=== PATIENT | male | born 1940 | race Caucasian/White ===

== ENCOUNTER 2018-05-21 15:53 | Inpatient (IN) ==
[2018-05-21 16:24] LABS: Basophils % 0.7 % (0.0-0.8); Eosinophils # 0.3 10*3/uL (0.0-0.87); Eosinophils % 4.3 % (0.00-10.9); Hematocrit 41.3 VOL% (42.0-52.0); Hemoglobin 14.1 GM/DL (14.0-18.0); Immature Granulocytes % 0.5 %; Immature Granulocytes Absolute 0.03 #; Mean Corpuscular HGB Conc 34.1 GM/DL (32-36); Mean Corpuscular Hemoglobin 31 PG (27-34); Mean Corpuscular Volume 91.6 FL (87-102); Mean Platelet Volume 10.3 FL (9.6-12.0); Monocytes # 0.6 10*3/uL (0.11-0.8); Neutrophils # 2.9 10*3/uL (1.4-7.4); Neutrophils % 49.5 % (38.7-73.9); Platelet Count 190 T/CUMM (130-400); Red Blood Count 4.51 MC/CUMM (3.8-5.5); Red Cell Distribution Width 12.6 % (9.3-17.3); White Blood Count 5.8 T/CUMM (4-12)
[2018-05-21 16:34] LABS: PT Patient Result 10.8 SECS; Partial Thromboplastin Time 27.4 SECS (0-40)
[2018-05-21] MEDS ORDERED: SODIUM CHLORIDE 0.9% 500 ML IV STA (16:42)
[2018-05-21] MEDS ORDERED: ONDANSETRON 4 MG/2 ML VIAL IV STA (16:42)
[2018-05-21 17:04] LABS: Albumin 3.8 G/DL (3.4-5.0); Bilirubin,Total 0.4 MG/DL (0.2-1.0); Calcium 9.3 MG/DL (8.5-10.1); Osmolality,Calculated 285.7 MOS/KG (273-304); Potassium 4.4 MMOL/L (3.5-5.1); Total Protein 7.9 G/DL (6.4-8.3)
[2018-05-21 17:39] LABS: Apearance,Urine CLEAR (Clear); Bilirubin,Urine Negative (Negative); Blood, Urine Negative (Negative); Glucose,Urine (UA) 150 mg/dL (Negative); Ketones,Urine Negative (Negative); Mucus,Urine Occasional /LPF (Occasional); Nitrite,Urine Negative (Negative); Protein,Urine 100 MG/DL; RBC,Urine <1 /HPF (0-4); Urine Color Yellow (Yellow); Urine Specific Gravity 1.018 (1.001-1.035); Urine Urobilinogen < 2.0 EU/DL (0.2-1.0); WBC,Urine <1 /HPF (0-6)
[2018-05-21 18:05] LABS: Barbiturates Screen,Urine Negative (Negative); Benzodiazepines Screen,Urine Negative (Negative); Cannabinoid Screen,Urine Negative (Negative); Opiate Screen,Urine Negative (Negative); Phencyclidine Screen,Urine Negative (Negative)
[2018-05-21] MEDS ORDERED: ACETAMINOPHEN 325 MG TABLET PO PRN (18:34)
[2018-05-21] MEDS ORDERED: ONDANSETRON 4 MG/2 ML VIAL IV PRN (18:34)
[2018-05-21] MEDS ORDERED: DOCUSATE SODIUM 100 MG CAPSULE PO PRN (18:34)
[2018-05-21] MEDS ORDERED: MORPHINE 4 MG/1 ML VIAL IV PRN (18:34)
[2018-05-21] MEDS ORDERED: DEXTROSE 50% 25 GM/50 ML VIAL IV PRN ×2 (18:34→18:43)
[2018-05-21] MEDS ORDERED: GLUCAGON 1 MG VIAL IM PRN ×2 (18:34→18:43)
[2018-05-21] MEDS ORDERED: diphenhydrAMINE CAP 25 MG CAPSULE PO PRN (18:34)
[2018-05-21] MEDS: INSULIN LISPRO 100 UNIT/ML SUBCUT SCH (21:00)
[2018-05-21] MEDS ORDERED: ATENOLOL 25 MG TABLET PO SCH (21:00)
[2018-05-21] MEDS: SODIUM CHLORIDE 0.9% 1,000 ML IV SCH (21:01)
[2018-05-21] MEDS: ENOXAPARIN 40 MG/0.4 ML SYRINGE SUBCUT SCH (21:56)
[2018-05-22 05:12] LABS: Basophils % 0.4 % (0.0-0.8); Eosinophils # 0.3 10*3/uL (0.0-0.87); Eosinophils % 5.1 % (0.00-10.9); Hematocrit 36.1 VOL% (42.0-52.0); Hemoglobin 12.4 GM/DL (14.0-18.0); Immature Granulocytes % 0.4 %; Immature Granulocytes Absolute 0.02 #; Lymphocytes # 1.8 10*3/uL (1.4-4.0); Mean Corpuscular HGB Conc 34.3 GM/DL (32-36); Mean Corpuscular Hemoglobin 32 PG (27-34); Mean Corpuscular Volume 91.9 FL (87-102); Mean Platelet Volume 10.7 FL (9.6-12.0); Monocytes # 0.7 10*3/uL (0.11-0.8); Monocytes % 12.9 % (1.7-12.7); Neutrophils # 2.4 10*3/uL (1.4-7.4); Neutrophils % 46.2 % (38.7-73.9); Platelet Count 182 T/CUMM (130-400); Red Blood Count 3.93 MC/CUMM (3.8-5.5); Red Cell Distribution Width 12.5 % (9.3-17.3); White Blood Count 5.1 T/CUMM (4-12)
[2018-05-22 05:48] LABS: Calcium 8.3 MG/DL (8.5-10.1); Potassium 4.2 MMOL/L (3.5-5.1); Risk Ratio 8.15; VLDL CHOLESTEROL 98.8 MG/DL
[2018-05-22] MEDS: LOSARTAN 50 MG TABLET PO SCH (08:52)
[2018-05-22] MEDS: PANTOPRAZOLE 40 MG TABLET PO SCH (08:52)
[2018-05-22] MEDS: GLIMEPIRIDE 2 MG TABLET PO SCH (08:52)
[2018-05-22] MEDS: OMEGA 3 ACID ETHYL ESTERS 1 GM CAPSULE PO SCH (08:53)
[2018-05-22] MEDS ORDERED: ATORVASTATIN 40 MG TABLET PO SCH (09:00)
[2018-05-22] MEDS ORDERED: amLODIPine 5 MG TABLET PO SCH (09:00)
[2018-05-22] MEDS ORDERED: PIOGLITAZONE 15 MG TABLET PO SCH (09:00)
[2018-05-22] MEDS ORDERED: hydrALAZINE 20 MG/1 ML VIAL IV PRN (11:01)
[2018-05-22] MEDS: INSULIN LISPRO 100 UNIT/ML SUBCUT SCH ×2 (12:37→17:29)
[2018-05-22] MEDS: NIACIN ER 500 MG TABLET PO SCH (12:38)
[2018-05-22] MEDS: SODIUM CHLORIDE 0.9% 1,000 ML IV SCH ×2 (12:39→21:53)
[2018-05-22] MEDS ORDERED: ROSUVASTATIN 20 MG TABLET PO SCH (21:00)
[2018-05-22] MEDS: ENOXAPARIN 40 MG/0.4 ML SYRINGE SUBCUT SCH (21:32)
[2018-05-23] MEDS ORDERED: ATENOLOL 25 MG TABLET PO SCH (08:09)
[2018-05-23] MEDS: OMEGA 3 ACID ETHYL ESTERS 1 GM CAPSULE PO SCH (09:13)
[2018-05-23] MEDS: GLIMEPIRIDE 2 MG TABLET PO SCH (09:13)
[2018-05-23] MEDS: PANTOPRAZOLE 40 MG TABLET PO SCH (09:13)
[2018-05-23] MEDS: INSULIN LISPRO 100 UNIT/ML SUBCUT SCH ×2 (09:15→16:55)
[2018-05-23] MEDS: LOSARTAN 50 MG TABLET PO SCH (09:30)
[2018-05-23] MEDS: NIACIN ER 500 MG TABLET PO SCH (09:31)
[2018-05-23] MEDS: metFORMIN 500 MG TABLET PO SCH (09:31)
[2018-05-23] MEDS: ATENOLOL 25 MG TABLET PO SCH (14:34)
[2018-05-23] MEDS: ENOXAPARIN 40 MG/0.4 ML SYRINGE SUBCUT SCH (21:02)
[2018-05-24] MEDS: INSULIN LISPRO 100 UNIT/ML SUBCUT SCH (09:40)
[2018-05-24] MEDS: PANTOPRAZOLE 40 MG TABLET PO SCH (09:41)
[2018-05-24] MEDS: NIACIN ER 500 MG TABLET PO SCH (09:41)
[2018-05-24] MEDS: OMEGA 3 ACID ETHYL ESTERS 1 GM CAPSULE PO SCH (09:41)
[2018-05-24] MEDS: metFORMIN 500 MG TABLET PO SCH (09:41)
[2018-05-24] MEDS: GLIMEPIRIDE 2 MG TABLET PO SCH (09:41)
[2018-05-24] MEDS: ATENOLOL 25 MG TABLET PO SCH (09:42)
[2018-05-24 11:41] VITALS: BP 130/78
[2018-05-24] MEDS ORDERED: DOXAZOSIN 1 MG TABLET PO SCH (12:30)
== END 2018-05-24 12:10 | disposition home or self-care (01) | DRG 312 ==
LOC: N.ED 15:53 → N.EDINP 15:53 → N.TELES 19:17
PROVIDERS: ADMIT Internal Medicine Pulmonary Disease; ATTEND Internal Medicine Pulmonary Disease

== ENCOUNTER 2021-05-25 15:57 | Inpatient (IN) ==
[2021-05-25] MEDS ORDERED: ONDANSETRON 4 MG/2 ML VIAL IV STA (16:26)
[2021-05-25] MEDS ORDERED: MORPHINE 2 MG/1 ML SYRINGE IV STA (16:26)
[2021-05-25] MEDS ORDERED: ASPIRIN 325 MG TABLET PO STA (16:26)
[2021-05-25 16:37] LABS: Basophils % 0.3 % (0.0-0.8); Eosinophils # 0.1 10*3/uL (0.0-0.87); Eosinophils % 1.7 % (0.00-10.9); Hematocrit 38.4 VOL% (42.0-52.0); Hemoglobin 12.8 GM/DL (14.0-18.0); Immature Granulocytes % 0.3 %; Immature Granulocytes Absolute 0.02 #; Lymphocytes # 1.9 10*3/uL (1.4-4.0); Lymphocytes % 26.2 % (21.2-54.2); Mean Corpuscular HGB Conc 33.3 GM/DL (32-36); Mean Corpuscular Volume 92.3 FL (87-102); Mean Platelet Volume 10.4 FL (9.6-12.0); Monocytes % 9.7 % (1.7-12.7); Neutrophils % 61.8 % (38.7-73.9); Platelet Count 182 T/CUMM (130-400); Red Blood Count 4.16 MC/CUMM (3.8-5.5); Red Cell Distribution Width 12.6 % (9.3-17.3); White Blood Count 7.1 T/CUMM (4-12)
[2021-05-25 16:44] LABS: Calcium 9.8 MG/DL (8.5-10.1); Osmolality,Calculated 280.8 MOS/KG (273-304); Potassium 4.5 MMOL/L (3.5-5.1)
[2021-05-25] MEDS ORDERED: HEPARIN 5,000 UNIT/1 ML VIAL IV STA ×2 (17:17→17:19)
[2021-05-25] MEDS ORDERED: TICAGRELOR 90 MG TABLET PO STA (17:17)
[2021-05-25] MEDS ORDERED: HEPARIN/NACL 0.9% 2 UNITS/ML 2,000 UNIT/1,000 ML BAG IV ONE (17:25)
[2021-05-25] MEDS ORDERED: DIAZEPAM 5 MG TABLET PO ONE (17:25)
[2021-05-25] MEDS ORDERED: diphenhydrAMINE CAP 50 MG CAPSULE PO ONE (17:25)
[2021-05-25] MEDS ORDERED: LIDOCAINE 1% 20 ML VIAL ONE (17:25)
[2021-05-25] MEDS ORDERED: GLUCAGON 1 MG VIAL IM PRN (17:27)
[2021-05-25] MEDS ORDERED: DEXTROSE 50% 25 GM/50 ML VIAL IV PRN (17:27)
[2021-05-25] MEDS ORDERED: fentaNYL 100 MCG/2 ML VIAL ONE (17:34)
[2021-05-25] MEDS ORDERED: MIDAZOLAM 2 MG/2 ML VIAL ONE ×2 (17:34→18:41)
[2021-05-25] MEDS ORDERED: TIROFIBAN 5,000 MCG/100 ML PREMIX IV ONE (17:54)
[2021-05-25] MEDS ORDERED: HEPARIN/NACL 0.9% 2 UNITS/ML 1,000 UNIT/500 ML BAG IV ONE (18:17)
[2021-05-25] MEDS ORDERED: diphenhydrAMINE CAP 25 MG CAPSULE PO ONE (18:30)
[2021-05-25] MEDS ORDERED: TICAGRELOR 90 MG TABLET ONE (18:44)
[2021-05-25] MEDS ORDERED: hydrALAZINE 20 MG/1 ML VIAL IV PRN (18:55)
[2021-05-25] MEDS: SODIUM CHLORIDE 0.9% 1,000 ML IV SCH (20:03)
[2021-05-25] MEDS: atenoloL 25 MG TABLET PO SCH (20:21)
[2021-05-25] MEDS: TICAGRELOR 90 MG TABLET PO SCH (20:21)
[2021-05-25] MEDS ORDERED: FUROSEMIDE 40 MG/4 ML VIAL IV ONE (20:51)
[2021-05-25] MEDS ORDERED: MORPHINE 2 MG/1 ML SYRINGE IV SCH (21:00)
[2021-05-25] MEDS: INSULIN REGULAR 100 UNIT/ML SUBCUT SCH (21:17)
[2021-05-25 21:23] LABS: ABG Base Excess -5.7 MMOL/L (-2.5-2.5); ABG HCO3 19.7 MMOL/L (20-26); ABG Oxygen Saturation 94.2 % (95-100); ABG PH 7.355 (7.35-7.45); ABG PO2 76.2 MM HG (80-95); ABG TCO2 16.7 MMOL/L (23-27)
[2021-05-25 21:44] LABS: Basophils % 0.2 % (0.0-0.8); Eosinophils % 0.1 % (0.00-10.9); Hematocrit 39.9 VOL% (42.0-52.0); Hemoglobin 12.9 GM/DL (14.0-18.0); Immature Granulocytes % 0.5 %; Immature Granulocytes Absolute 0.08 #; Lymphocytes # 1.5 10*3/uL (1.4-4.0); Lymphocytes % 10.1 % (21.2-54.2); Mean Corpuscular HGB Conc 32.3 GM/DL (32-36); Mean Corpuscular Volume 93.2 FL (87-102); Mean Platelet Volume 10.3 FL (9.6-12.0); Monocytes % 7.6 % (1.7-12.7); Neutrophils % 81.5 % (38.7-73.9); Platelet Count 202 T/CUMM (130-400); Red Blood Count 4.28 MC/CUMM (3.8-5.5); Red Cell Distribution Width 12.7 % (9.3-17.3); White Blood Count 14.6 T/CUMM (4-12)
[2021-05-25] MEDS: ALBUTEROL/IPRATROPIUM 3 ML NEB RESP TX SCH ×2 (21:56→23:05)
[2021-05-25] MEDS ORDERED: NITROGLYCERIN DRIP 50 MG/250 ML BOTTLE IV PRN (21:58)
[2021-05-25 22:04] LABS: INR 1.1; PT Patient Result 11.8 SECS (10.5-12.0); Partial Thromboplastin Time 31.6 SECS (23.9-33.8)
[2021-05-25] MEDS: methylPREDNISolone SOD SUC 125 MG/2 ML VIAL IV SCH (22:25)
[2021-05-25] MEDS: ONDANSETRON 4 MG/2 ML VIAL IV PRN (22:25)
[2021-05-25 22:51] LABS: Bilirubin,Urine Negative (Negative); Blood, Urine Negative (Negative); Glucose,Urine (UA) Negative (Negative); Ketones,Urine 20 mg/dL (Negative); Mucus,Urine Occasional /LPF (Occasional); Nitrite,Urine Negative (Negative); Protein,Urine 100 MG/DL; RBC,Urine 1 /HPF (0-4); Urine Appearance CLEAR (Clear); Urine Color Yellow (Yellow); Urine Specific Gravity > 1.035 (1.001-1.035)
[2021-05-26] MEDS: MORPHINE 2 MG/1 ML SYRINGE IV PRN ×2 (00:48→19:05)
[2021-05-26] MEDS: SODIUM CHLORIDE 0.9% 1,000 ML IV SCH (01:51)
[2021-05-26 02:00] LABS: Basophils % 0.2 % (0.0-0.8); Hematocrit 38.5 VOL% (42.0-52.0); Hemoglobin 12.9 GM/DL (14.0-18.0); Immature Granulocytes % 0.7 %; Immature Granulocytes Absolute 0.09 #; Lymphocytes # 0.4 10*3/uL (1.4-4.0); Lymphocytes % 3.1 % (21.2-54.2); Mean Corpuscular HGB Conc 33.5 GM/DL (32-36); Mean Corpuscular Volume 92.1 FL (87-102); Mean Platelet Volume 10.3 FL (9.6-12.0); Monocytes % 3.2 % (1.7-12.7); NRBC # 0.02 10*3/uL; Neutrophils % 92.8 % (38.7-73.9); Platelet Count 186 T/CUMM (130-400); Red Blood Count 4.18 MC/CUMM (3.8-5.5); Red Cell Distribution Width 12.6 % (9.3-17.3); White Blood Count 13.3 T/CUMM (4-12)
[2021-05-26] MEDS ORDERED: FUROSEMIDE 40 MG/4 ML VIAL IV ONE (02:06)
[2021-05-26 02:13] LABS: Calcium 9.4 MG/DL (8.5-10.1); Osmolality,Calculated 281.1 MOS/KG (273-304); Potassium 4.6 MMOL/L (3.5-5.1)
[2021-05-26] MEDS: ALBUTEROL/IPRATROPIUM 3 ML NEB RESP TX SCH ×5 (04:00→21:04)
[2021-05-26 04:25] LABS: Hypochromasia 1+; Lymphocytes 3 % (20-55); Microcytosis 1+; Segmented Neutrophils 96 % (50-85); Tear Drop Cells Slight; Total Cells Counted 100
[2021-05-26 04:26] LABS: Platelet Estimate Adequate
[2021-05-26] MEDS: INSULIN REGULAR 100 UNIT/ML SUBCUT SCH ×4 (08:21→20:24)
[2021-05-26] MEDS: ASPIRIN EC 81 MG TABLET PO SCH (08:21)
[2021-05-26] MEDS: PANTOPRAZOLE 40 MG TABLET PO SCH (08:23)
[2021-05-26] MEDS: TICAGRELOR 90 MG TABLET PO SCH ×2 (08:23→20:23)
[2021-05-26] MEDS: atenoloL 25 MG TABLET PO SCH ×2 (08:43→20:23)
[2021-05-26] MEDS ORDERED: GLIMEPIRIDE 4 MG TABLET PO SCH (09:00)
[2021-05-26] MEDS: methylPREDNISolone SOD SUC 125 MG/2 ML VIAL IV SCH ×2 (09:37→21:30)
[2021-05-26] MEDS: FUROSEMIDE 40 MG/4 ML VIAL IV SCH ×2 (10:42→16:07)
[2021-05-26] MEDS: ONDANSETRON 4 MG/2 ML VIAL IV PRN (19:04)
[2021-05-26] MEDS: ZALEPLON 5 MG CAPSULE PO PRN (20:24)
[2021-05-27] MEDS: LEVALBUTEROL 0.31 MG/3 ML NEB RESP TX SCH ×3 (01:04→07:40)
[2021-05-27] MEDS: ONDANSETRON 4 MG/2 ML VIAL IV PRN (04:10)
[2021-05-27] MEDS: SODIUM CHLORIDE 0.9% 1,000 ML IV SCH (04:25)
[2021-05-27] MEDS: MORPHINE 2 MG/1 ML SYRINGE IV PRN (04:25)
[2021-05-27] MEDS: ALBUTEROL/IPRATROPIUM 3 ML NEB RESP TX SCH ×3 (05:11→07:39)
[2021-05-27] MEDS: ALUMINUM/MAGNES/SIMETH MAX STR 30 ML UDCUP PO PRN ×2 (06:00→08:06)
[2021-05-27] MEDS: INSULIN REGULAR 100 UNIT/ML SUBCUT SCH ×4 (08:06→20:37)
[2021-05-27] MEDS: FUROSEMIDE 40 MG/4 ML VIAL IV SCH (08:07)
[2021-05-27] MEDS: TICAGRELOR 90 MG TABLET PO SCH ×2 (08:08→20:35)
[2021-05-27] MEDS: ISOSORBIDE MONONITRATE 30 MG TABLET PO SCH (08:08)
[2021-05-27] MEDS: ASPIRIN EC 81 MG TABLET PO SCH (08:08)
[2021-05-27 08:09] LABS: Calcium 9.9 MG/DL (8.5-10.1); Potassium 4.7 MMOL/L (3.5-5.1)
[2021-05-27] MEDS: PANTOPRAZOLE 40 MG TABLET PO SCH (08:09)
[2021-05-27] MEDS: RANOLAZINE 500 MG TABLET PO SCH ×2 (08:14→20:34)
[2021-05-27] MEDS: atenoloL 25 MG TABLET PO SCH ×2 (08:14→20:34)
[2021-05-27] MEDS ORDERED: SPIRONOLACTONE 25 MG TABLET PO SCH (09:00)
[2021-05-27] MEDS ORDERED: ALUM/MAG/SIMETH/LIDO VISC 1:1 30 ML BOTTLE PO ONE (09:13)
[2021-05-27] MEDS: cefTRIAXone 1,000 MG in SODIUM CHLORIDE 0.9% 100 ML IV SCH (11:03)
[2021-05-27] MEDS: ACETAMINOPHEN 325 MG TABLET PO PRN ×2 (11:08→18:38)
[2021-05-27] MEDS ORDERED: diphenhydrAMINE CAP 25 MG CAPSULE PO PRN (16:09)
[2021-05-27] MEDS: DOCUSATE SODIUM 100 MG CAPSULE PO SCH (20:35)
[2021-05-27] MEDS: ZALEPLON 5 MG CAPSULE PO PRN (20:37)
[2021-05-28] MEDS: LEVALBUTEROL 0.31 MG/3 ML NEB RESP TX PRN ×3 (00:44→15:05)
[2021-05-28 07:09] LABS: Basophils % 0.1 % (0.0-0.8); Hematocrit 35.9 VOL% (42.0-52.0); Hemoglobin 11.8 GM/DL (14.0-18.0); Immature Granulocytes % 0.8 %; Immature Granulocytes Absolute 0.16 #; Lymphocytes % 4.6 % (21.2-54.2); Mean Corpuscular HGB Conc 32.9 GM/DL (32-36); Mean Platelet Volume 10.5 FL (9.6-12.0); Monocytes % 9.3 % (1.7-12.7); Neutrophils % 85.2 % (38.7-73.9); Platelet Count 218 T/CUMM (130-400); Red Blood Count 3.86 MC/CUMM (3.8-5.5); Red Cell Distribution Width 13.2 % (9.3-17.3); White Blood Count 20.6 T/CUMM (4-12)
[2021-05-28 07:30] LABS: Band Neutrophils 1 % (0-10); Lymphocytes 9 % (20-55); Platelet Estimate Normal; Segmented Neutrophils 84 % (50-85); Total Cells Counted 100
[2021-05-28] MEDS: SODIUM CHLORIDE 0.9% 1,000 ML IV SCH (07:48)
[2021-05-28] MEDS: INSULIN REGULAR 100 UNIT/ML SUBCUT SCH ×4 (07:48→20:33)
[2021-05-28 07:55] LABS: Calcium 9.8 MG/DL (8.5-10.1); Osmolality,Calculated 295.7 MOS/KG (273-304); Potassium 4.6 MMOL/L (3.5-5.1)
[2021-05-28] MEDS ORDERED: methylPREDNISolone SOD SUC 125 MG/2 ML VIAL IV ONE (09:21)
[2021-05-28 09:46] LABS: ABG Base Excess 0.4 MMOL/L (-2.5-2.5); ABG HCO3 24.5 MMOL/L (20-26); ABG PCO2 41.4 MM HG (35-48); ABG PH 7.395 (7.35-7.45); ABG PO2 55.9 MM HG (80-95); ABG TCO2 22.5 MMOL/L (23-27)
[2021-05-28] MEDS: RANOLAZINE 500 MG TABLET PO SCH ×2 (11:20→20:32)
[2021-05-28] MEDS: ASPIRIN EC 81 MG TABLET PO SCH (11:20)
[2021-05-28] MEDS: PANTOPRAZOLE 40 MG TABLET PO SCH (11:20)
[2021-05-28] MEDS: TICAGRELOR 90 MG TABLET PO SCH ×2 (11:20→20:33)
[2021-05-28] MEDS: ISOSORBIDE MONONITRATE 30 MG TABLET PO SCH (11:21)
[2021-05-28] MEDS: DOCUSATE SODIUM 100 MG CAPSULE PO SCH ×2 (11:21→20:32)
[2021-05-28] MEDS: atenoloL 25 MG TABLET PO SCH ×2 (11:21→20:33)
[2021-05-28] MEDS: BISACODYL 5 MG TABLET PO PRN (11:21)
[2021-05-28] MEDS: cefTRIAXone 1,000 MG in SODIUM CHLORIDE 0.9% 100 ML IV SCH (11:33)
[2021-05-28] MEDS ORDERED: FUROSEMIDE 40 MG/4 ML VIAL IV ONE (11:39)
[2021-05-28] MEDS: LEVALBUTEROL 0.31 MG/3 ML NEB RESP TX SCH (20:00)
[2021-05-28] MEDS: ZALEPLON 5 MG CAPSULE PO PRN (22:29)
[2021-05-29] MEDS: SODIUM CHLORIDE 0.9% 1,000 ML IV SCH (02:14)
[2021-05-29] MEDS: LEVALBUTEROL 0.31 MG/3 ML NEB RESP TX SCH ×7 (04:22→23:24)
[2021-05-29 06:00] LABS: Basophils % 0.1 % (0.0-0.8); Hematocrit 33.2 VOL% (42.0-52.0); Hemoglobin 11.2 GM/DL (14.0-18.0); Immature Granulocytes % 0.7 %; Immature Granulocytes Absolute 0.12 #; Lymphocytes # 0.6 10*3/uL (1.4-4.0); Lymphocytes % 3.7 % (21.2-54.2); Mean Corpuscular HGB Conc 33.7 GM/DL (32-36); Mean Corpuscular Volume 93.5 FL (87-102); Mean Platelet Volume 10.9 FL (9.6-12.0); Monocytes % 6.4 % (1.7-12.7); Neutrophils % 89.1 % (38.7-73.9); Platelet Count 188 T/CUMM (130-400); Red Blood Count 3.55 MC/CUMM (3.8-5.5); Red Cell Distribution Width 12.9 % (9.3-17.3); White Blood Count 16.2 T/CUMM (4-12)
[2021-05-29 06:16] LABS: Calcium 9.5 MG/DL (8.5-10.1); Osmolality,Calculated 305.4 MOS/KG (273-304); Potassium 4.3 MMOL/L (3.5-5.1)
[2021-05-29 06:27] LABS: Hypochromasia 1+; Lymphocytes 3 % (20-55); Microcytosis 1+; Platelet Estimate Adequate; Segmented Neutrophils 94 % (50-85); Total Cells Counted 100
[2021-05-29] MEDS: INSULIN REGULAR 100 UNIT/ML SUBCUT SCH ×4 (09:38→21:13)
[2021-05-29] MEDS: ASPIRIN EC 81 MG TABLET PO SCH (09:39)
[2021-05-29] MEDS: ISOSORBIDE MONONITRATE 30 MG TABLET PO SCH (09:39)
[2021-05-29] MEDS: DOCUSATE SODIUM 100 MG CAPSULE PO SCH ×2 (09:39→21:12)
[2021-05-29] MEDS: atenoloL 25 MG TABLET PO SCH ×2 (09:39→21:11)
[2021-05-29] MEDS: PANTOPRAZOLE 40 MG TABLET PO SCH (09:39)
[2021-05-29] MEDS: RANOLAZINE 500 MG TABLET PO SCH ×2 (09:39→21:12)
[2021-05-29] MEDS: TICAGRELOR 90 MG TABLET PO SCH ×2 (09:40→21:12)
[2021-05-29] MEDS: cefTRIAXone 1,000 MG in SODIUM CHLORIDE 0.9% 100 ML IV SCH (09:48)
[2021-05-29] MEDS: BISACODYL 5 MG TABLET PO PRN (09:58)
[2021-05-29] MEDS: ZALEPLON 5 MG CAPSULE PO PRN (21:12)
[2021-05-30] MEDS: LEVALBUTEROL 0.31 MG/3 ML NEB RESP TX SCH ×6 (02:31→23:45)
[2021-05-30] MEDS ORDERED: ALUM/MAG/SIMETH/LIDO VISC 1:1 30 ML BOTTLE PO ONE (02:55)
[2021-05-30] MEDS: SODIUM CHLORIDE 0.9% 1,000 ML IV SCH (03:40)
[2021-05-30] MEDS ORDERED: FUROSEMIDE 40 MG/4 ML VIAL ONE (04:05)
[2021-05-30] MEDS ORDERED: FUROSEMIDE 40 MG/4 ML VIAL IV ONE (04:14)
[2021-05-30 04:29] LABS: Basophils % 0.1 % (0.0-0.8); Hematocrit 30.2 VOL% (42.0-52.0); Hemoglobin 10.1 GM/DL (14.0-18.0); Immature Granulocytes % 0.9 %; Immature Granulocytes Absolute 0.15 #; Lymphocytes # 0.5 10*3/uL (1.4-4.0); Lymphocytes % 2.7 % (21.2-54.2); Mean Corpuscular HGB Conc 33.4 GM/DL (32-36); Mean Corpuscular Volume 91.5 FL (87-102); Mean Platelet Volume 11.3 FL (9.6-12.0); Monocytes % 7.7 % (1.7-12.7); NRBC # 0.04 10*3/uL; Neutrophils % 88.6 % (38.7-73.9); Platelet Count 225 T/CUMM (130-400); Red Cell Distribution Width 13.3 % (9.3-17.3); White Blood Count 17.5 T/CUMM (4-12)
[2021-05-30 04:32] LABS: ABG Base Excess 3.8 MMOL/L (-2.5-2.5); ABG HCO3 27.7 MMOL/L (20-26); ABG Oxygen Saturation 87.3 % (95-100); ABG PCO2 38.5 MM HG (35-48); ABG PH 7.465 (7.35-7.45); ABG PO2 55.2 MM HG (80-95)
[2021-05-30 04:53] LABS: Hypochromasia Slight; Lymphocytes 6 % (20-55); Microcytosis Slight; Platelet Estimate Adequate; Segmented Neutrophils 86 % (50-85); Total Cells Counted 100
[2021-05-30 04:56] LABS: Calcium 9.4 MG/DL (8.5-10.1); Osmolality,Calculated 315.4 MOS/KG (273-304); Potassium 4.9 MMOL/L (3.5-5.1)
[2021-05-30] MEDS ORDERED: HYDROmorphone 2 MG/1 ML VIAL ONE (04:56)
[2021-05-30] MEDS: HYDROmorphone 2 MG/1 ML VIAL IV PRN ×4 (05:00→20:09)
[2021-05-30] MEDS ORDERED: PANTOPRAZOLE 40 MG VIAL IV ONE (05:57)
[2021-05-30] MEDS: SIMETHICONE CHEW 125 MG TABLET PO PRN ×2 (06:30→14:46)
[2021-05-30] MEDS: SIMETHICONE CHEW 80 MG TABLET PO PRN ×2 (06:30→09:21)
[2021-05-30] MEDS: INSULIN REGULAR 100 UNIT/ML SUBCUT SCH ×4 (08:00→21:09)
[2021-05-30] MEDS: methylPREDNISolone SOD SUC 40 MG/1 ML VIAL IV SCH ×2 (09:28→15:49)
[2021-05-30] MEDS: cefTRIAXone 1,000 MG in SODIUM CHLORIDE 0.9% 100 ML IV SCH (09:32)
[2021-05-30] MEDS: ASPIRIN EC 81 MG TABLET PO SCH (10:24)
[2021-05-30] MEDS: DOCUSATE SODIUM 100 MG CAPSULE PO SCH ×2 (10:24→21:09)
[2021-05-30] MEDS: ISOSORBIDE MONONITRATE 30 MG TABLET PO SCH (10:24)
[2021-05-30] MEDS: PANTOPRAZOLE 40 MG TABLET PO SCH (10:24)
[2021-05-30] MEDS: TICAGRELOR 90 MG TABLET PO SCH ×2 (10:24→21:09)
[2021-05-30] MEDS: atenoloL 25 MG TABLET PO SCH ×2 (10:25→21:09)
[2021-05-30] MEDS: RANOLAZINE 500 MG TABLET PO SCH ×2 (10:25→21:09)
[2021-05-30] MEDS ORDERED: HYDROmorphone 2 MG/1 ML VIAL IV PRN (10:26)
[2021-05-31] MEDS: methylPREDNISolone SOD SUC 40 MG/1 ML VIAL IV SCH ×3 (00:47→17:20)
[2021-05-31] MEDS: LEVALBUTEROL 0.31 MG/3 ML NEB RESP TX SCH ×5 (03:45→19:55)
[2021-05-31 04:31] LABS: Basophils % 0.1 % (0.0-0.8); Hematocrit 32.2 VOL% (42.0-52.0); Hemoglobin 10.5 GM/DL (14.0-18.0); Immature Granulocytes Absolute 0.14 #; Lymphocytes # 0.4 10*3/uL (1.4-4.0); Mean Corpuscular HGB Conc 32.6 GM/DL (32-36); Mean Corpuscular Volume 93.3 FL (87-102); Monocytes % 6.2 % (1.7-12.7); NRBC # 0.02 10*3/uL; Neutrophils % 89.7 % (38.7-73.9); Platelet Count 219 T/CUMM (130-400); Red Blood Count 3.45 MC/CUMM (3.8-5.5); Red Cell Distribution Width 13.6 % (9.3-17.3); White Blood Count 14.4 T/CUMM (4-12)
[2021-05-31 05:00] LABS: Calcium 10.2 MG/DL (8.5-10.1); Osmolality,Calculated 324.8 MOS/KG (273-304); Potassium 3.5 MMOL/L (3.5-5.1)
[2021-05-31 05:01] LABS: Hypochromasia 1+; Lymphocytes 5 % (20-55); Segmented Neutrophils 91 % (50-85); Total Cells Counted 100
[2021-05-31 05:02] LABS: Microcytosis 1+; Ovalocytes Slight; Platelet Estimate Normal
[2021-05-31] MEDS ORDERED: BISACODYL 10 MG SUPP RECTAL ONE (08:41)
[2021-05-31] MEDS: INSULIN REGULAR 100 UNIT/ML SUBCUT SCH (08:42)
[2021-05-31] MEDS: ISOSORBIDE MONONITRATE 30 MG TABLET PO SCH (08:42)
[2021-05-31] MEDS: RANOLAZINE 500 MG TABLET PO SCH ×2 (08:42→20:42)
[2021-05-31] MEDS: PANTOPRAZOLE 40 MG TABLET PO SCH (08:42)
[2021-05-31] MEDS: TICAGRELOR 90 MG TABLET PO SCH ×2 (08:44→20:42)
[2021-05-31] MEDS: cefTRIAXone 1,000 MG in SODIUM CHLORIDE 0.9% 100 ML IV SCH (10:59)
[2021-05-31] MEDS ORDERED: LORazepam 2 MG/1 ML VIAL IV PRN (11:53)
[2021-05-31] MEDS ORDERED: NITROGLYCERIN SL 0.4 MG TABLET SL ONE (14:47)
[2021-05-31] MEDS ORDERED: ALUM/MAG/SIMETH/LIDO VISC 1:1 30 ML BOTTLE PO ONE (15:03)
[2021-05-31] MEDS: ALUMINUM/MAGNES/SIMETH MAX STR 30 ML UDCUP PO PRN (16:08)
[2021-05-31] MEDS ORDERED: INSULIN LISPRO 100 UNIT/ML SUBCUT SCH (17:00)
[2021-05-31] MEDS: ONDANSETRON 4 MG/2 ML VIAL IV PRN (20:42)
[2021-05-31] MEDS: SODIUM CHLORIDE 0.9% 1,000 ML IV SCH (20:46)
[2021-06-01] MEDS: LEVALBUTEROL 0.31 MG/3 ML NEB RESP TX SCH ×7 (00:03→23:17)
[2021-06-01] MEDS: methylPREDNISolone SOD SUC 40 MG/1 ML VIAL IV SCH ×4 (00:14→23:41)
[2021-06-01 05:48] LABS: Basophils % 0.2 % (0.0-0.8); Hematocrit 30.1 VOL% (42.0-52.0); Hemoglobin 9.7 GM/DL (14.0-18.0); Immature Granulocytes % 1.9 %; Immature Granulocytes Absolute 0.24 #; Lymphocytes # 0.3 10*3/uL (1.4-4.0); Lymphocytes % 2.1 % (21.2-54.2); Mean Corpuscular HGB Conc 32.2 GM/DL (32-36); Mean Corpuscular Volume 94.7 FL (87-102); Mean Platelet Volume 11.4 FL (9.6-12.0); Monocytes % 4.5 % (1.7-12.7); NRBC # 0.03 10*3/uL; Neutrophils % 91.3 % (38.7-73.9); Platelet Count 176 T/CUMM (130-400); Red Blood Count 3.18 MC/CUMM (3.8-5.5); Red Cell Distribution Width 13.7 % (9.3-17.3); White Blood Count 12.7 T/CUMM (4-12)
[2021-06-01 06:14] LABS: Albumin 2.3 G/DL (3.4-5.0); Bilirubin,Total 1.1 MG/DL (0.20-1.00); Calcium 10.1 MG/DL (8.5-10.1); Hypochromasia 1+; Lymphocytes 1 % (20-55); Microcytosis 1+; Osmolality,Calculated 343.1 MOS/KG (273-304); Platelet Estimate Adequate; Potassium 4.5 MMOL/L (3.5-5.1); Segmented Neutrophils 96 % (50-85); Total Cells Counted 100; Total Protein 6.4 G/DL (6.4-8.2)
[2021-06-01] MEDS ORDERED: FUROSEMIDE 40 MG/4 ML VIAL IV ONE (07:51)
[2021-06-01] MEDS: TICAGRELOR 90 MG TABLET PO SCH ×2 (09:43→20:52)
[2021-06-01] MEDS: ISOSORBIDE MONONITRATE 30 MG TABLET PO SCH (09:44)
[2021-06-01] MEDS: PANTOPRAZOLE 40 MG TABLET PO SCH (09:46)
[2021-06-01] MEDS: RANOLAZINE 500 MG TABLET PO SCH ×2 (09:47→20:52)
[2021-06-01] MEDS: INSULIN LISPRO 100 UNIT/ML SUBCUT SCH ×4 (10:55→20:55)
[2021-06-01] MEDS: cefTRIAXone 1,000 MG in SODIUM CHLORIDE 0.9% 100 ML IV SCH (11:14)
[2021-06-01] MEDS: SODIUM CHLORIDE 0.9% 1,000 ML IV SCH (16:31)
[2021-06-01] MEDS: INSULIN GLARGINE 100 UNIT/ML SUBCUT SCH (20:55)
[2021-06-02] MEDS: LEVALBUTEROL 0.31 MG/3 ML NEB RESP TX SCH ×6 (03:56→23:50)
[2021-06-02 06:01] LABS: Basophils % 0.2 % (0.0-0.8); Hematocrit 29.9 VOL% (42.0-52.0); Hemoglobin 9.6 GM/DL (14.0-18.0); Immature Granulocytes % 2.5 %; Immature Granulocytes Absolute 0.34 #; Lymphocytes # 0.2 10*3/uL (1.4-4.0); Lymphocytes % 1.4 % (21.2-54.2); Mean Corpuscular HGB Conc 32.1 GM/DL (32-36); Mean Corpuscular Volume 96.5 FL (87-102); Mean Platelet Volume 11.3 FL (9.6-12.0); Monocytes % 6.4 % (1.7-12.7); NRBC # 0.06 10*3/uL; Neutrophils % 89.5 % (38.7-73.9); Platelet Count 168 T/CUMM (130-400); Red Cell Distribution Width 13.9 % (9.3-17.3); White Blood Count 13.4 T/CUMM (4-12)
[2021-06-02 06:19] LABS: Calcium 9.8 MG/DL (8.5-10.1); Osmolality,Calculated 354.2 MOS/KG (273-304); Potassium 4.1 MMOL/L (3.5-5.1)
[2021-06-02] MEDS: ONDANSETRON 4 MG/2 ML VIAL IV PRN (06:24)
[2021-06-02 06:32] LABS: Band Neutrophils 2 % (0-10); Hypochromasia 1+; Lymphocytes 1 % (20-55); Microcytosis 1+; Segmented Neutrophils 89 % (50-85); Total Cells Counted 100
[2021-06-02 06:33] LABS: Platelet Estimate Adequate
[2021-06-02] MEDS: INSULIN LISPRO 100 UNIT/ML SUBCUT SCH ×4 (08:51→21:23)
[2021-06-02] MEDS: TICAGRELOR 90 MG TABLET PO SCH ×2 (09:17→21:22)
[2021-06-02] MEDS: ISOSORBIDE MONONITRATE 30 MG TABLET PO SCH (09:17)
[2021-06-02] MEDS: PANTOPRAZOLE 40 MG TABLET PO SCH (09:17)
[2021-06-02] MEDS: RANOLAZINE 500 MG TABLET PO SCH ×2 (09:17→21:36)
[2021-06-02] MEDS: GLIMEPIRIDE 4 MG TABLET PO SCH (09:17)
[2021-06-02] MEDS: methylPREDNISolone SOD SUC 40 MG/1 ML VIAL IV SCH ×2 (09:19→16:56)
[2021-06-02] MEDS: SODIUM CHLORIDE 0.9% 1,000 ML IV SCH ×2 (09:20→22:16)
[2021-06-02] MEDS: cefTRIAXone 1,000 MG in SODIUM CHLORIDE 0.9% 100 ML IV SCH (10:24)
[2021-06-02] MEDS: INSULIN GLARGINE 100 UNIT/ML SUBCUT SCH (21:35)
[2021-06-03] MEDS: methylPREDNISolone SOD SUC 40 MG/1 ML VIAL IV SCH ×3 (00:53→17:29)
[2021-06-03] MEDS: LEVALBUTEROL 0.31 MG/3 ML NEB RESP TX SCH ×6 (02:50→23:42)
[2021-06-03 04:58] LABS: Basophils % 0.2 % (0.0-0.8); Hematocrit 31.4 VOL% (42.0-52.0); Hemoglobin 9.6 GM/DL (14.0-18.0); Immature Granulocytes % 3.7 %; Immature Granulocytes Absolute 0.64 #; Lymphocytes # 0.3 10*3/uL (1.4-4.0); Lymphocytes % 1.5 % (21.2-54.2); Mean Corpuscular HGB Conc 30.6 GM/DL (32-36); Mean Platelet Volume 11.6 FL (9.6-12.0); Monocytes % 6.2 % (1.7-12.7); NRBC # 0.11 10*3/uL; Neutrophils % 88.4 % (38.7-73.9); Platelet Count 159 T/CUMM (130-400); Red Blood Count 3.14 MC/CUMM (3.8-5.5); White Blood Count 17.5 T/CUMM (4-12)
[2021-06-03 05:18] LABS: Nucleated Red Blood Cells 1 (0-5); Segmented Neutrophils 96 % (50-85); Total Cells Counted 100
[2021-06-03 05:19] LABS: Hypochromasia 1+; Microcytosis 1+; Platelet Estimate Adequate
[2021-06-03 05:30] LABS: Calcium 9.7 MG/DL (8.5-10.1); Osmolality,Calculated 357.2 MOS/KG (273-304); Potassium 4.3 MMOL/L (3.5-5.1)
[2021-06-03] MEDS: PANTOPRAZOLE 40 MG TABLET PO SCH (09:19)
[2021-06-03] MEDS: RANOLAZINE 500 MG TABLET PO SCH ×2 (09:19→20:23)
[2021-06-03] MEDS: GLIMEPIRIDE 4 MG TABLET PO SCH (09:19)
[2021-06-03] MEDS: TICAGRELOR 90 MG TABLET PO SCH ×2 (09:19→20:24)
[2021-06-03] MEDS: ISOSORBIDE MONONITRATE 30 MG TABLET PO SCH (09:19)
[2021-06-03] MEDS: INSULIN LISPRO 100 UNIT/ML SUBCUT SCH ×4 (09:20→20:24)
[2021-06-03] MEDS: SODIUM CHLORIDE 0.45% 1,000 ML IV SCH (09:20)
[2021-06-03] MEDS: cefTRIAXone 1,000 MG in SODIUM CHLORIDE 0.9% 100 ML IV SCH (11:56)
[2021-06-03] MEDS: INSULIN GLARGINE 100 UNIT/ML SUBCUT SCH (20:24)
[2021-06-04] MEDS: methylPREDNISolone SOD SUC 40 MG/1 ML VIAL IV SCH ×3 (00:41→20:52)
[2021-06-04] MEDS: SODIUM CHLORIDE 0.45% 1,000 ML IV SCH ×3 (00:51→22:25)
[2021-06-04] MEDS: LEVALBUTEROL 0.31 MG/3 ML NEB RESP TX SCH ×5 (04:06→20:09)
[2021-06-04 07:34] LABS: Basophils % 0.2 % (0.0-0.8); Eosinophils % 0.1 % (0.00-10.9); Hematocrit 28.9 VOL% (42.0-52.0); Hemoglobin 8.6 GM/DL (14.0-18.0); Immature Granulocytes % 4.5 %; Immature Granulocytes Absolute 0.83 #; Lymphocytes # 0.4 10*3/uL (1.4-4.0); Lymphocytes % 2.1 % (21.2-54.2); Mean Corpuscular HGB Conc 29.8 GM/DL (32-36); Mean Corpuscular Volume 100.3 FL (87-102); Monocytes % 4.8 % (1.7-12.7); NRBC # 0.11 10*3/uL; Neutrophils % 88.3 % (38.7-73.9); Platelet Count 136 T/CUMM (130-400); Red Blood Count 2.88 MC/CUMM (3.8-5.5); White Blood Count 18.4 T/CUMM (4-12)
[2021-06-04 07:56] LABS: Calcium 8.8 MG/DL (8.5-10.1); Osmolality,Calculated 347.9 MOS/KG (273-304)
[2021-06-04 07:58] LABS: Lymphocytes 7 % (20-55); Nucleated Red Blood Cells 1 (0-5); Platelet Estimate Normal; Segmented Neutrophils 90 % (50-85); Total Cells Counted 100
[2021-06-04 07:59] LABS: Hypochromasia Slight
[2021-06-04] MEDS: INSULIN LISPRO 100 UNIT/ML SUBCUT SCH ×4 (08:32→20:51)
[2021-06-04] MEDS: PANTOPRAZOLE 40 MG TABLET PO SCH (08:34)
[2021-06-04] MEDS: GLIMEPIRIDE 4 MG TABLET PO SCH ×2 (08:34→16:46)
[2021-06-04] MEDS: RANOLAZINE 500 MG TABLET PO SCH ×2 (08:34→20:47)
[2021-06-04] MEDS: ISOSORBIDE MONONITRATE 30 MG TABLET PO SCH (08:34)
[2021-06-04] MEDS: TICAGRELOR 90 MG TABLET PO SCH ×2 (08:35→20:47)
[2021-06-04] MEDS: ONDANSETRON 4 MG/2 ML VIAL IV PRN (16:42)
[2021-06-04] MEDS: ALUMINUM/MAGNES/SIMETH MAX STR 30 ML UDCUP PO PRN (18:32)
[2021-06-04] MEDS: INSULIN GLARGINE 100 UNIT/ML SUBCUT SCH (20:51)
[2021-06-05] MEDS: LEVALBUTEROL 0.31 MG/3 ML NEB RESP TX SCH ×7 (04:00→23:33)
[2021-06-05 05:30] LABS: Basophils % 0.2 % (0.0-0.8); Hematocrit 28.6 VOL% (42.0-52.0); Hemoglobin 8.7 GM/DL (14.0-18.0); Immature Granulocytes % 4.3 %; Immature Granulocytes Absolute 0.92 #; Lymphocytes # 0.3 10*3/uL (1.4-4.0); Lymphocytes % 1.6 % (21.2-54.2); Mean Corpuscular HGB Conc 30.4 GM/DL (32-36); Mean Corpuscular Volume 100.7 FL (87-102); Mean Platelet Volume 11.9 FL (9.6-12.0); Monocytes % 2.9 % (1.7-12.7); NRBC # 0.16 10*3/uL; Platelet Count 137 T/CUMM (130-400); Red Blood Count 2.84 MC/CUMM (3.8-5.5); Red Cell Distribution Width 14.1 % (9.3-17.3); White Blood Count 21.3 T/CUMM (4-12)
[2021-06-05 05:57] LABS: Calcium 9.1 MG/DL (8.5-10.1); Osmolality,Calculated 334.7 MOS/KG (273-304); Potassium 4.9 MMOL/L (3.5-5.1)
[2021-06-05 06:37] LABS: Anisocytosis 2+; Band Neutrophils 6 % (0-10); Lymphocytes 4 % (20-55); Macrocytosis 1+; Platelet Estimate Adequate; Segmented Neutrophils 88 % (50-85); Total Cells Counted 100
[2021-06-05] MEDS: SODIUM CHLORIDE 0.45% 1,000 ML IV SCH ×2 (09:18→20:32)
[2021-06-05] MEDS: INSULIN LISPRO 100 UNIT/ML SUBCUT SCH ×4 (09:19→20:29)
[2021-06-05] MEDS: ISOSORBIDE MONONITRATE 30 MG TABLET PO SCH (09:20)
[2021-06-05] MEDS: TICAGRELOR 90 MG TABLET PO SCH ×2 (09:21→20:28)
[2021-06-05] MEDS: PANTOPRAZOLE 40 MG TABLET PO SCH (09:21)
[2021-06-05] MEDS: GLIMEPIRIDE 4 MG TABLET PO SCH ×2 (09:21→16:29)
[2021-06-05] MEDS: RANOLAZINE 500 MG TABLET PO SCH ×2 (09:21→20:28)
[2021-06-05] MEDS: methylPREDNISolone SOD SUC 40 MG/1 ML VIAL IV SCH ×2 (09:26→20:29)
[2021-06-05] MEDS: INSULIN GLARGINE 100 UNIT/ML SUBCUT SCH (20:28)
[2021-06-06] MEDS: LEVALBUTEROL 0.31 MG/3 ML NEB RESP TX SCH ×5 (03:01→23:25)
[2021-06-06 05:45] LABS: Basophils % 0.2 % (0.0-0.8); Hematocrit 26.2 VOL% (42.0-52.0); Hemoglobin 8.1 GM/DL (14.0-18.0); Immature Granulocytes % 5.4 %; Immature Granulocytes Absolute 1.03 #; Lymphocytes # 0.2 10*3/uL (1.4-4.0); Lymphocytes % 1.2 % (21.2-54.2); Mean Corpuscular HGB Conc 30.9 GM/DL (32-36); Mean Platelet Volume 11.9 FL (9.6-12.0); Monocytes % 2.7 % (1.7-12.7); NRBC # 0.15 10*3/uL; Neutrophils % 90.5 % (38.7-73.9); Platelet Count 135 T/CUMM (130-400); Red Blood Count 2.62 MC/CUMM (3.8-5.5); White Blood Count 18.9 T/CUMM (4-12)
[2021-06-06 06:07] LABS: Calcium 8.6 MG/DL (8.5-10.1); Osmolality,Calculated 327.4 MOS/KG (273-304); Potassium 4.8 MMOL/L (3.5-5.1)
[2021-06-06 06:41] LABS: Anisocytosis 1+; Band Neutrophils 4 % (0-10); Burr Cells Few; Hypersegmented Neutrophil Few; Lymphocytes 2 % (20-55); Macrocytosis Slight; Metamyelocytes 3 %; Nucleated Red Blood Cells 3 (0-5); Platelet Estimate Adequate; Segmented Neutrophils 90 % (50-85); Smudge Cells Few; Spherocytes Few; Total Cells Counted 100
[2021-06-06 06:42] LABS: Basophilic Stippling Slight; Ovalocytes Few
[2021-06-06] MEDS: INSULIN LISPRO 100 UNIT/ML SUBCUT SCH ×4 (08:16→20:57)
[2021-06-06] MEDS: methylPREDNISolone SOD SUC 40 MG/1 ML VIAL IV SCH ×2 (08:18→20:57)
[2021-06-06] MEDS: TICAGRELOR 90 MG TABLET PO SCH ×2 (08:21→20:56)
[2021-06-06] MEDS: ISOSORBIDE MONONITRATE 30 MG TABLET PO SCH (08:22)
[2021-06-06] MEDS: PANTOPRAZOLE 40 MG TABLET PO SCH (08:22)
[2021-06-06] MEDS: GLIMEPIRIDE 4 MG TABLET PO SCH ×2 (08:22→18:19)
[2021-06-06] MEDS: RANOLAZINE 500 MG TABLET PO SCH ×2 (08:23→20:56)
[2021-06-06] MEDS: SODIUM CHLORIDE 0.45% 1,000 ML IV SCH (08:24)
[2021-06-06] MEDS: METOPROLOL TARTRATE 25 MG TABLET PO SCH (20:56)
[2021-06-06] MEDS: INSULIN GLARGINE 100 UNIT/ML SUBCUT SCH (20:57)
[2021-06-07] MEDS: LEVALBUTEROL 0.31 MG/3 ML NEB RESP TX SCH ×6 (03:00→23:50)
[2021-06-07 05:29] LABS: Basophils # 0.1 10*3/uL (0.0-0.2); Basophils % 0.3 % (0.0-0.8); Hematocrit 28.3 VOL% (42.0-52.0); Hemoglobin 8.6 GM/DL (14.0-18.0); Immature Granulocytes % 4.9 %; Immature Granulocytes Absolute 1.05 #; Lymphocytes # 0.3 10*3/uL (1.4-4.0); Lymphocytes % 1.3 % (21.2-54.2); Mean Corpuscular HGB Conc 30.4 GM/DL (32-36); Mean Corpuscular Volume 102.2 FL (87-102); Mean Platelet Volume 11.9 FL (9.6-12.0); Monocytes % 2.9 % (1.7-12.7); NRBC # 0.27 10*3/uL; Neutrophils % 90.6 % (38.7-73.9); Platelet Count 128 T/CUMM (130-400); Red Blood Count 2.77 MC/CUMM (3.8-5.5); Red Cell Distribution Width 14.3 % (9.3-17.3); White Blood Count 21.5 T/CUMM (4-12)
[2021-06-07 05:53] LABS: Calcium 9.3 MG/DL (8.5-10.1); Osmolality,Calculated 324.3 MOS/KG (273-304); Potassium 4.5 MMOL/L (3.5-5.1)
[2021-06-07 07:08] LABS: Band Neutrophils 1 % (0-10); Burr Cells Few; Lymphocytes 5 % (20-55); Macrocytosis 1+; Myelocytes 1 %; Nucleated Red Blood Cells 5 (0-5); Platelet Estimate Adequate; Polychromasia Slight; Segmented Neutrophils 93 % (50-85); Tear Drop Cells Few; Total Cells Counted 100
[2021-06-07] MEDS: INSULIN LISPRO 100 UNIT/ML SUBCUT SCH ×4 (08:17→21:57)
[2021-06-07] MEDS: methylPREDNISolone SOD SUC 40 MG/1 ML VIAL IV SCH ×2 (08:18→21:56)
[2021-06-07] MEDS: METOPROLOL TARTRATE 25 MG TABLET PO SCH ×2 (08:18→21:59)
[2021-06-07] MEDS: GLIMEPIRIDE 4 MG TABLET PO SCH ×2 (08:18→16:23)
[2021-06-07] MEDS: PANTOPRAZOLE 40 MG TABLET PO SCH (08:18)
[2021-06-07] MEDS: TICAGRELOR 90 MG TABLET PO SCH ×2 (08:18→21:57)
[2021-06-07] MEDS: ISOSORBIDE MONONITRATE 30 MG TABLET PO SCH (08:18)
[2021-06-07] MEDS: RANOLAZINE 500 MG TABLET PO SCH ×2 (08:18→21:59)
[2021-06-07] MEDS ORDERED: WITCH HAZEL PADS 100/JAR TOP PRN (10:02)
[2021-06-07] MEDS: HYDROCORTISONE 25 MG SUPP RECTAL SCH ×2 (10:52→21:56)
[2021-06-07] MEDS: INSULIN GLARGINE 100 UNIT/ML SUBCUT SCH (21:59)
[2021-06-08] MEDS: LEVALBUTEROL 0.31 MG/3 ML NEB RESP TX SCH ×7 (03:57→23:40)
[2021-06-08 05:42] LABS: Basophils % 0.2 % (0.0-0.8); Hematocrit 26.1 VOL% (42.0-52.0); Immature Granulocytes % 4.4 %; Immature Granulocytes Absolute 0.78 #; Lymphocytes # 0.3 10*3/uL (1.4-4.0); Lymphocytes % 1.5 % (21.2-54.2); Mean Corpuscular HGB Conc 30.7 GM/DL (32-36); Mean Corpuscular Volume 99.6 FL (87-102); Mean Platelet Volume 11.8 FL (9.6-12.0); NRBC # 0.15 10*3/uL; Neutrophils % 90.9 % (38.7-73.9); Platelet Count 142 T/CUMM (130-400); Red Blood Count 2.62 MC/CUMM (3.8-5.5); Red Cell Distribution Width 14.9 % (9.3-17.3); White Blood Count 17.5 T/CUMM (4-12)
[2021-06-08 06:00] LABS: Osmolality,Calculated 328.6 MOS/KG (273-304); Potassium 4.8 MMOL/L (3.5-5.1)
[2021-06-08 06:16] LABS: Hypochromasia 1+; Lymphocytes 2 % (20-55); Microcytosis 1+; Nucleated Red Blood Cells 2 (0-5); Platelet Estimate Adequate; Segmented Neutrophils 96 % (50-85); Total Cells Counted 100
[2021-06-08] MEDS: ISOSORBIDE MONONITRATE 30 MG TABLET PO SCH (09:52)
[2021-06-08] MEDS: TICAGRELOR 90 MG TABLET PO SCH ×2 (09:52→20:42)
[2021-06-08] MEDS: HYDROCORTISONE 25 MG SUPP RECTAL SCH ×3 (09:52→20:42)
[2021-06-08] MEDS: PANTOPRAZOLE 40 MG TABLET PO SCH (09:52)
[2021-06-08] MEDS: GLIMEPIRIDE 4 MG TABLET PO SCH ×2 (09:52→16:23)
[2021-06-08] MEDS: RANOLAZINE 500 MG TABLET PO SCH ×2 (09:52→20:17)
[2021-06-08] MEDS: METOPROLOL TARTRATE 25 MG TABLET PO SCH ×2 (09:52→20:17)
[2021-06-08] MEDS: INSULIN LISPRO 100 UNIT/ML SUBCUT SCH ×4 (09:54→20:16)
[2021-06-08] MEDS: methylPREDNISolone SOD SUC 40 MG/1 ML VIAL IV SCH (09:57)
[2021-06-08] MEDS: FERROUS SULFATE 325 MG TABLET PO SCH ×2 (12:16→20:16)
[2021-06-08] MEDS: ALUMINUM/MAGNES/SIMETH MAX STR 30 ML UDCUP PO PRN (16:23)
[2021-06-08] MEDS: INSULIN GLARGINE 100 UNIT/ML SUBCUT SCH (20:42)
[2021-06-08] MEDS ORDERED: DOCUSATE SODIUM 100 MG CAPSULE PO SCH (21:00)
[2021-06-09] MEDS: LEVALBUTEROL 0.31 MG/3 ML NEB RESP TX SCH ×5 (03:20→19:45)
[2021-06-09 08:44] LABS: Calcium 8.9 MG/DL (8.5-10.1); Osmolality,Calculated 321.6 MOS/KG (273-304); Potassium 4.7 MMOL/L (3.5-5.1)
[2021-06-09] MEDS ORDERED: INFLUENZA VIRUS VACCINE 0.5 ML SYRINGE IM ONE (09:00)
[2021-06-09] MEDS: METOPROLOL TARTRATE 25 MG TABLET PO SCH ×2 (09:04→21:14)
[2021-06-09] MEDS: ISOSORBIDE MONONITRATE 30 MG TABLET PO SCH (09:04)
[2021-06-09] MEDS: GLIMEPIRIDE 4 MG TABLET PO SCH ×2 (09:04→16:06)
[2021-06-09] MEDS: FERROUS SULFATE 325 MG TABLET PO SCH ×2 (09:04→21:14)
[2021-06-09] MEDS: PANTOPRAZOLE 40 MG TABLET PO SCH (09:04)
[2021-06-09] MEDS: TICAGRELOR 90 MG TABLET PO SCH ×2 (09:05→21:14)
[2021-06-09] MEDS: DOCUSATE SODIUM 100 MG CAPSULE PO SCH ×2 (09:05→21:14)
[2021-06-09] MEDS: POLYETHYLENE GLYCOL POWDER 17 GM PACK PO SCH (09:05)
[2021-06-09] MEDS: RANOLAZINE 500 MG TABLET PO SCH ×2 (09:05→21:14)
[2021-06-09] MEDS: INSULIN LISPRO 100 UNIT/ML SUBCUT SCH ×4 (10:08→21:13)
[2021-06-09] MEDS: DESITIN 4OZ/NYSTATIN 15 GRAM MIXTURE PASTE TOP SCH ×2 (10:09→21:15)
[2021-06-09] MEDS: INSULIN GLARGINE 100 UNIT/ML SUBCUT SCH (21:07)
[2021-06-10] MEDS: LEVALBUTEROL 0.31 MG/3 ML NEB RESP TX SCH ×4 (00:31→20:15)
[2021-06-10] MEDS: INSULIN LISPRO 100 UNIT/ML SUBCUT SCH ×4 (09:34→20:42)
[2021-06-10] MEDS: FERROUS SULFATE 325 MG TABLET PO SCH ×2 (09:51→20:41)
[2021-06-10] MEDS: POLYETHYLENE GLYCOL POWDER 17 GM PACK PO SCH (09:51)
[2021-06-10] MEDS: TICAGRELOR 90 MG TABLET PO SCH ×2 (09:51→20:47)
[2021-06-10] MEDS: METOPROLOL TARTRATE 25 MG TABLET PO SCH ×2 (09:52→20:41)
[2021-06-10] MEDS: GLIMEPIRIDE 4 MG TABLET PO SCH ×2 (09:52→16:36)
[2021-06-10] MEDS: ISOSORBIDE MONONITRATE 30 MG TABLET PO SCH (09:52)
[2021-06-10] MEDS: PANTOPRAZOLE 40 MG TABLET PO SCH (09:52)
[2021-06-10] MEDS: FUROSEMIDE 40 MG TABLET PO SCH (09:52)
[2021-06-10] MEDS: RANOLAZINE 500 MG TABLET PO SCH ×2 (09:52→20:41)
[2021-06-10] MEDS: DOCUSATE SODIUM 100 MG CAPSULE PO SCH ×2 (09:52→20:45)
[2021-06-10] MEDS: DESITIN 4OZ/NYSTATIN 15 GRAM MIXTURE PASTE TOP SCH ×2 (09:53→20:44)
[2021-06-10] MEDS: INSULIN GLARGINE 100 UNIT/ML SUBCUT SCH (20:44)
[2021-06-11] MEDS: LEVALBUTEROL 0.31 MG/3 ML NEB RESP TX SCH ×4 (00:35→11:47)
[2021-06-11 06:29] LABS: Basophils % 0.2 % (0.0-0.8); Eosinophils # 0.2 10*3/uL (0.0-0.87); Eosinophils % 1.2 % (0.00-10.9); Hematocrit 25.5 VOL% (42.0-52.0); Hemoglobin 8.1 GM/DL (14.0-18.0); Immature Granulocytes % 2.6 %; Immature Granulocytes Absolute 0.35 #; Lymphocytes # 0.5 10*3/uL (1.4-4.0); Lymphocytes % 3.3 % (21.2-54.2); Mean Corpuscular HGB Conc 31.8 GM/DL (32-36); Mean Corpuscular Volume 99.6 FL (87-102); Mean Platelet Volume 11.6 FL (9.6-12.0); Monocytes % 4.6 % (1.7-12.7); NRBC # 0.04 10*3/uL; Neutrophils % 88.1 % (38.7-73.9); Red Blood Count 2.56 MC/CUMM (3.8-5.5); Red Cell Distribution Width 15.9 % (9.3-17.3); White Blood Count 13.5 T/CUMM (4-12)
[2021-06-11 06:38] LABS: Platelet Count 113 T/CUMM (130-400)
[2021-06-11 06:50] LABS: Hypochromasia 1+; Lymphocytes 4 % (20-55); Microcytosis 1+; Nucleated Red Blood Cells 1 (0-5); Platelet Estimate Decreased; Segmented Neutrophils 91 % (50-85); Total Cells Counted 100
[2021-06-11 07:02] LABS: Calcium 8.5 MG/DL (8.5-10.1); Osmolality,Calculated 300.6 MOS/KG (273-304); Potassium 4.4 MMOL/L (3.5-5.1)
[2021-06-11] MEDS: INSULIN LISPRO 100 UNIT/ML SUBCUT SCH (08:04)
[2021-06-11 08:21] VITALS: BP 130/66
[2021-06-11] MEDS: GLIMEPIRIDE 4 MG TABLET PO SCH (09:05)
[2021-06-11] MEDS: FERROUS SULFATE 325 MG TABLET PO SCH (09:05)
[2021-06-11] MEDS: METOPROLOL TARTRATE 25 MG TABLET PO SCH (09:05)
[2021-06-11] MEDS: FUROSEMIDE 40 MG TABLET PO SCH (09:05)
[2021-06-11] MEDS: ISOSORBIDE MONONITRATE 30 MG TABLET PO SCH (09:05)
[2021-06-11] MEDS: TICAGRELOR 90 MG TABLET PO SCH (09:05)
[2021-06-11] MEDS: DOCUSATE SODIUM 100 MG CAPSULE PO SCH (09:05)
[2021-06-11] MEDS: RANOLAZINE 500 MG TABLET PO SCH (09:05)
[2021-06-11] MEDS: POLYETHYLENE GLYCOL POWDER 17 GM PACK PO SCH (09:06)
[2021-06-11] MEDS: PANTOPRAZOLE 40 MG TABLET PO SCH (09:06)
[2021-06-11] MEDS: DESITIN 4OZ/NYSTATIN 15 GRAM MIXTURE PASTE TOP SCH (09:06)
== END 2021-06-11 11:00 | disposition home or self-care (01) | DRG 250 ==
LOC: N.ED 15:57 → N.EDINP 17:25 → N.ICU 17:33 → N.TELES 05-27 10:24 → N.ICU 05-30 04:51 → N.4E 05-30 08:14
PROVIDERS: ADMIT Internal Medicine Cardiovascular Disease; ATTEND Internal Medicine Cardiovascular Disease

== ENCOUNTER 2021-07-10 03:11 | Inpatient (IN) ==
[2021-07-10] MEDS ORDERED: NITROGLYCERIN SL 0.4 MG TABLET SL ONE (03:30)
[2021-07-10] MEDS ORDERED: ONDANSETRON 4 MG/2 ML VIAL IV ONE (03:31)
[2021-07-10] MEDS: NITROGLYCERIN SL 0.4 MG TABLET SL PRN ×2 (03:33→18:33)
[2021-07-10] MEDS ORDERED: TICAGRELOR 90 MG TABLET PO STA (03:36)
[2021-07-10] MEDS ORDERED: HYDROmorphone 2 MG/1 ML VIAL IV STA (03:36)
[2021-07-10 03:45] LABS: Basophils # 0.1 10*3/uL (0.0-0.2); Basophils % 0.6 % (0.0-0.8); Eosinophils # 0.1 10*3/uL (0.0-0.87); Eosinophils % 0.4 % (0.00-10.9); Hematocrit 34.6 VOL% (42.0-52.0); Hemoglobin 11.1 GM/DL (14.0-18.0); Immature Granulocytes % 2.7 %; Immature Granulocytes Absolute 0.54 #; Lymphocytes # 3.8 10*3/uL (1.4-4.0); Lymphocytes % 19.3 % (21.2-54.2); Mean Corpuscular HGB Conc 32.1 GM/DL (32-36); Mean Corpuscular Volume 98.6 FL (87-102); Mean Platelet Volume 8.9 FL (9.6-12.0); Monocytes % 6.6 % (1.7-12.7); Neutrophils % 70.4 % (38.7-73.9); Platelet Count 466 T/CUMM (130-400); Red Blood Count 3.51 MC/CUMM (3.8-5.5); Red Cell Distribution Width 17.1 % (9.3-17.3); White Blood Count 19.7 T/CUMM (4-12)
[2021-07-10 04:07] LABS: Albumin 2.9 G/DL (3.4-5.0); Bilirubin,Total 0.5 MG/DL (0.20-1.00); Calcium 9.9 MG/DL (8.5-10.1); Osmolality,Calculated 288.8 MOS/KG (273-304); Potassium 3.9 MMOL/L (3.5-5.1); Total Protein 8.1 G/DL (6.4-8.2)
[2021-07-10 04:08] LABS: Atypical Lymphocytes Few; Hypochromasia Slight; Lymphocytes 19 % (20-55); Microcytosis 1+; Myelocytes 2 %; Polychromasia Slight; Segmented Neutrophils 71 % (50-85); Total Cells Counted 100
[2021-07-10 04:09] LABS: Platelet Estimate Increased
[2021-07-10 04:28] LABS: PT Patient Result 11.1 SECS (10.5-12.0); Partial Thromboplastin Time 26.5 SECS (23.8-32.1)
[2021-07-10] MEDS ORDERED: LEVOFLOXACIN INJ 750 MG/150 ML PREMIX IV STA (04:28)
[2021-07-10] MEDS ORDERED: DEXTROSE 50% 25 GM/50 ML VIAL IV PRN ×3 (05:45→16:27)
[2021-07-10] MEDS ORDERED: ACETAMINOPHEN 325 MG TABLET PO PRN (05:45)
[2021-07-10] MEDS ORDERED: GLUCAGON 1 MG VIAL IM PRN (05:45)
[2021-07-10] MEDS ORDERED: HYDROmorphone 2 MG/1 ML VIAL IV PRN (05:45)
[2021-07-10] MEDS: PIPERACILLIN/TAZOBACTAM 3,375 MG in SODIUM CHLORIDE 0.9% 100 ML IV SCH ×3 (06:35→15:46)
[2021-07-10] MEDS ORDERED: PNEUMOCOCCAL VACCINE (13 VALENT) 0.5 ML SYRINGE IM ONE (07:28)
[2021-07-10] MEDS: ALBUTEROL/IPRATROPIUM 3 ML NEB RESP TX SCH ×3 (07:35→19:00)
[2021-07-10] MEDS: ENOXAPARIN 40 MG/0.4 ML SYRINGE SUBCUT SCH (09:28)
[2021-07-10] MEDS: PANTOPRAZOLE 40 MG TABLET PO SCH (09:29)
[2021-07-10] MEDS: INSULIN REGULAR 100 UNIT/ML SUBCUT SCH ×4 (09:29→20:32)
[2021-07-10] MEDS: FLUTICASONE 50 MCG NASAL SPRAY 16 GM BOTTLE BOTH NARES SCH (12:49)
[2021-07-10] MEDS: FUROSEMIDE 40 MG/4 ML VIAL IV SCH (12:49)
[2021-07-10] MEDS: VANCOMYCIN INJ 1,000 MG in SODIUM CHLORIDE 0.9% 250 ML IV SCH (12:50)
[2021-07-10] MEDS: AMIODARONE 200 MG TABLET PO SCH (20:32)
[2021-07-10] MEDS: TICAGRELOR 90 MG TABLET PO SCH (20:32)
[2021-07-10] MEDS: FERROUS SULFATE 325 MG TABLET PO SCH (20:32)
[2021-07-10] MEDS: INSULIN GLARGINE 100 UNIT/ML SUBCUT SCH (20:32)
[2021-07-10] MEDS: METOPROLOL TARTRATE 25 MG TABLET PO SCH (20:33)
[2021-07-11] MEDS: PIPERACILLIN/TAZOBACTAM 3,375 MG in SODIUM CHLORIDE 0.9% 100 ML IV SCH ×3 (00:25→16:48)
[2021-07-11] MEDS: ALBUTEROL/IPRATROPIUM 3 ML NEB RESP TX SCH ×4 (01:00→19:54)
[2021-07-11 04:59] LABS: Basophils % 0.3 % (0.0-0.8); Eosinophils # 0.1 10*3/uL (0.0-0.87); Eosinophils % 0.5 % (0.00-10.9); Hematocrit 25.8 VOL% (42.0-52.0); Immature Granulocytes % 2.3 %; Immature Granulocytes Absolute 0.24 #; Lymphocytes # 1.6 10*3/uL (1.4-4.0); Lymphocytes % 14.9 % (21.2-54.2); Mean Corpuscular HGB Conc 32.9 GM/DL (32-36); Mean Corpuscular Volume 98.5 FL (87-102); Mean Platelet Volume 9.1 FL (9.6-12.0); Monocytes % 12.4 % (1.7-12.7); Neutrophils % 69.6 % (38.7-73.9); Red Cell Distribution Width 15.9 % (9.3-17.3)
[2021-07-11 05:00] LABS: Hemoglobin 8.5 GM/DL (14.0-18.0); Platelet Count 298 T/CUMM (130-400); Red Blood Count 2.62 MC/CUMM (3.8-5.5); White Blood Count 10.5 T/CUMM (4-12)
[2021-07-11 05:08] LABS: Calcium 9.3 MG/DL (8.5-10.1); Osmolality,Calculated 282.4 MOS/KG (273-304)
[2021-07-11 07:39] LABS: Ferritin 135.6 ng/mL (26-388)
[2021-07-11] MEDS: ENOXAPARIN 40 MG/0.4 ML SYRINGE SUBCUT SCH (08:43)
[2021-07-11] MEDS: FUROSEMIDE 40 MG/4 ML VIAL IV SCH (08:43)
[2021-07-11] MEDS: TICAGRELOR 90 MG TABLET PO SCH ×2 (08:44→20:32)
[2021-07-11] MEDS: FERROUS SULFATE 325 MG TABLET PO SCH ×2 (08:44→20:33)
[2021-07-11] MEDS: PANTOPRAZOLE 40 MG TABLET PO SCH ×2 (08:44→20:32)
[2021-07-11] MEDS: INSULIN REGULAR 100 UNIT/ML SUBCUT SCH ×4 (08:44→20:32)
[2021-07-11] MEDS: AMIODARONE 200 MG TABLET PO SCH ×2 (08:44→20:32)
[2021-07-11] MEDS: DOCUSATE SODIUM 100 MG CAPSULE PO SCH (08:44)
[2021-07-11] MEDS: METOPROLOL TARTRATE 25 MG TABLET PO SCH ×2 (08:45→20:32)
[2021-07-11] MEDS: LORATADINE 10 MG TABLET PO SCH (08:45)
[2021-07-11] MEDS ORDERED: ALUM/MAG/SIMETH/LIDO VISC 1:1 30 ML BOTTLE PO ONE (09:23)
[2021-07-11] MEDS: FLUTICASONE 50 MCG NASAL SPRAY 16 GM BOTTLE BOTH NARES SCH (11:29)
[2021-07-11] MEDS: VANCOMYCIN INJ 1,000 MG in SODIUM CHLORIDE 0.9% 250 ML IV SCH (12:22)
[2021-07-11] MEDS ORDERED: ALUM/MAG/SIMETH/LIDO VISC 1:1 30 ML BOTTLE PO PRN (15:30)
[2021-07-11] MEDS: INSULIN GLARGINE 100 UNIT/ML SUBCUT SCH (20:32)
[2021-07-12] MEDS: PIPERACILLIN/TAZOBACTAM 3,375 MG in SODIUM CHLORIDE 0.9% 100 ML IV SCH ×3 (00:10→17:54)
[2021-07-12] MEDS: ALBUTEROL/IPRATROPIUM 3 ML NEB RESP TX SCH ×3 (01:41→13:00)
[2021-07-12 04:45] LABS: Basophils # 0.1 10*3/uL (0.0-0.2); Basophils % 0.4 % (0.0-0.8); Eosinophils # 0.1 10*3/uL (0.0-0.87); Hematocrit 28.9 VOL% (42.0-52.0); Hemoglobin 8.6 GM/DL (14.0-18.0); Immature Granulocytes % 1.6 %; Lymphocytes # 1.5 10*3/uL (1.4-4.0); Lymphocytes % 11.9 % (21.2-54.2); Mean Corpuscular HGB Conc 29.8 GM/DL (32-36); Mean Corpuscular Volume 96.7 FL (87-102); Mean Platelet Volume 9.2 FL (9.6-12.0); Monocytes % 9.9 % (1.7-12.7); Neutrophils % 75.2 % (38.7-73.9); Platelet Count 302 T/CUMM (130-400); Red Blood Count 2.99 MC/CUMM (3.8-5.5); Red Cell Distribution Width 15.9 % (9.3-17.3); White Blood Count 12.6 T/CUMM (4-12)
[2021-07-12 05:13] LABS: Calcium 9.3 MG/DL (8.5-10.1); Osmolality,Calculated 281.4 MOS/KG (273-304); Potassium 3.7 MMOL/L (3.5-5.1)
[2021-07-12] MEDS ORDERED: ALUMINUM/MAGNES/SIMETH MAX STR 30 ML UDCUP PO PRN (08:16)
[2021-07-12] MEDS: INSULIN REGULAR 100 UNIT/ML SUBCUT SCH ×4 (08:54→22:05)
[2021-07-12] MEDS: FUROSEMIDE 40 MG/4 ML VIAL IV SCH (08:55)
[2021-07-12] MEDS: PANTOPRAZOLE 40 MG TABLET PO SCH (10:00)
[2021-07-12] MEDS: AMIODARONE 200 MG TABLET PO SCH ×2 (10:04→20:29)
[2021-07-12] MEDS: LORATADINE 10 MG TABLET PO SCH (10:04)
[2021-07-12] MEDS: DOCUSATE SODIUM 100 MG CAPSULE PO SCH (10:04)
[2021-07-12] MEDS: FERROUS SULFATE 325 MG TABLET PO SCH ×2 (10:04→20:29)
[2021-07-12] MEDS: TICAGRELOR 90 MG TABLET PO SCH ×2 (10:04→20:29)
[2021-07-12] MEDS: METOPROLOL TARTRATE 25 MG TABLET PO SCH ×2 (10:04→20:29)
[2021-07-12] MEDS: FLUTICASONE 50 MCG NASAL SPRAY 16 GM BOTTLE BOTH NARES SCH (10:05)
[2021-07-12] MEDS: ENOXAPARIN 40 MG/0.4 ML SYRINGE SUBCUT SCH (10:05)
[2021-07-12] MEDS: PANTOPRAZOLE 40 MG VIAL IV SCH ×2 (10:05→20:30)
[2021-07-12] MEDS: VANCOMYCIN INJ 1,000 MG in SODIUM CHLORIDE 0.9% 250 ML IV SCH (12:07)
[2021-07-12] MEDS ORDERED: INSULIN GLARGINE 100 UNIT/ML SUBCUT SCH (21:00)
[2021-07-13] MEDS: PIPERACILLIN/TAZOBACTAM 3,375 MG in SODIUM CHLORIDE 0.9% 100 ML IV SCH ×3 (00:53→16:43)
[2021-07-13 05:34] LABS: Basophils # 0.1 10*3/uL (0.0-0.2); Basophils % 0.5 % (0.0-0.8); Eosinophils # 0.1 10*3/uL (0.0-0.87); Eosinophils % 1.3 % (0.00-10.9); Hematocrit 28.7 VOL% (42.0-52.0); Hemoglobin 8.4 GM/DL (14.0-18.0); Immature Granulocytes % 1.1 %; Immature Granulocytes Absolute 0.11 #; Lymphocytes # 1.2 10*3/uL (1.4-4.0); Lymphocytes % 12.1 % (21.2-54.2); Mean Corpuscular HGB Conc 29.3 GM/DL (32-36); Mean Corpuscular Volume 97.6 FL (87-102); Mean Platelet Volume 9.4 FL (9.6-12.0); Monocytes % 8.6 % (1.7-12.7); Neutrophils % 76.4 % (38.7-73.9); Platelet Count 297 T/CUMM (130-400); Red Blood Count 2.94 MC/CUMM (3.8-5.5); Red Cell Distribution Width 16.1 % (9.3-17.3); White Blood Count 10.1 T/CUMM (4-12)
[2021-07-13 05:59] LABS: Calcium 9.4 MG/DL (8.5-10.1); Osmolality,Calculated 293.1 MOS/KG (273-304); Potassium 4.1 MMOL/L (3.5-5.1)
[2021-07-13] MEDS: NITROGLYCERIN SL 0.4 MG TABLET SL PRN (06:16)
[2021-07-13] MEDS: ALBUTEROL/IPRATROPIUM 3 ML NEB RESP TX SCH ×4 (06:23→19:25)
[2021-07-13] MEDS ORDERED: INSULIN GLARGINE 100 UNIT/ML SUBCUT ONE (07:45)
[2021-07-13] MEDS: AMIODARONE 200 MG TABLET PO SCH ×2 (09:40→21:59)
[2021-07-13] MEDS: DOCUSATE SODIUM 100 MG CAPSULE PO SCH (09:40)
[2021-07-13] MEDS: LORATADINE 10 MG TABLET PO SCH (09:40)
[2021-07-13] MEDS: FERROUS SULFATE 325 MG TABLET PO SCH ×2 (09:40→21:59)
[2021-07-13] MEDS: FUROSEMIDE 40 MG/4 ML VIAL IV SCH ×2 (09:40→16:42)
[2021-07-13] MEDS: ENOXAPARIN 40 MG/0.4 ML SYRINGE SUBCUT SCH (09:40)
[2021-07-13] MEDS: PANTOPRAZOLE 40 MG VIAL IV SCH ×2 (09:40→22:00)
[2021-07-13] MEDS: METOPROLOL TARTRATE 25 MG TABLET PO SCH ×2 (09:40→21:59)
[2021-07-13] MEDS: TICAGRELOR 90 MG TABLET PO SCH ×2 (09:40→21:59)
[2021-07-13] MEDS: INSULIN REGULAR 100 UNIT/ML SUBCUT SCH ×4 (10:50→21:59)
[2021-07-13] MEDS: FLUTICASONE 50 MCG NASAL SPRAY 16 GM BOTTLE BOTH NARES SCH (10:51)
[2021-07-13] MEDS: VANCOMYCIN INJ 1,000 MG in SODIUM CHLORIDE 0.9% 250 ML IV SCH ×2 (12:17→15:30)
[2021-07-13] MEDS: INSULIN GLARGINE 100 UNIT/ML SUBCUT SCH (22:00)
[2021-07-14] MEDS: ALBUTEROL/IPRATROPIUM 3 ML NEB RESP TX SCH ×4 (01:13→19:39)
[2021-07-14] MEDS: PIPERACILLIN/TAZOBACTAM 3,375 MG in SODIUM CHLORIDE 0.9% 100 ML IV SCH ×4 (01:17→23:54)
[2021-07-14 06:05] LABS: Potassium 3.3 MMOL/L (3.5-5.1)
[2021-07-14] MEDS: FUROSEMIDE 40 MG/4 ML VIAL IV SCH ×2 (10:05→17:59)
[2021-07-14] MEDS: PANTOPRAZOLE 40 MG VIAL IV SCH ×2 (10:05→21:14)
[2021-07-14] MEDS: POTASSIUM CHLORIDE 20 MEQ TABLET PO SCH (10:05)
[2021-07-14] MEDS: TICAGRELOR 90 MG TABLET PO SCH ×2 (10:05→21:12)
[2021-07-14] MEDS: ENOXAPARIN 40 MG/0.4 ML SYRINGE SUBCUT SCH (10:05)
[2021-07-14] MEDS: DOCUSATE SODIUM 100 MG CAPSULE PO SCH (10:05)
[2021-07-14] MEDS: AMIODARONE 200 MG TABLET PO SCH ×2 (10:06→21:13)
[2021-07-14] MEDS: METOPROLOL TARTRATE 25 MG TABLET PO SCH ×2 (10:06→21:12)
[2021-07-14] MEDS: LORATADINE 10 MG TABLET PO SCH (10:06)
[2021-07-14] MEDS: FERROUS SULFATE 325 MG TABLET PO SCH ×2 (10:06→21:12)
[2021-07-14] MEDS: INSULIN REGULAR 100 UNIT/ML SUBCUT SCH ×4 (10:30→21:15)
[2021-07-14] MEDS: VANCOMYCIN INJ 1,000 MG in SODIUM CHLORIDE 0.9% 250 ML IV SCH (10:34)
[2021-07-14] MEDS: FLUTICASONE 50 MCG NASAL SPRAY 16 GM BOTTLE BOTH NARES SCH (10:35)
[2021-07-14] MEDS: INSULIN GLARGINE 100 UNIT/ML SUBCUT SCH (21:13)
[2021-07-15] MEDS: ALBUTEROL/IPRATROPIUM 3 ML NEB RESP TX SCH ×2 (01:06→07:14)
[2021-07-15] MEDS: VANCOMYCIN INJ 1,000 MG in SODIUM CHLORIDE 0.9% 250 ML IV SCH (04:11)
[2021-07-15 04:32] LABS: Basophils # 0.1 10*3/uL (0.0-0.2); Basophils % 0.6 % (0.0-0.8); Eosinophils # 0.2 10*3/uL (0.0-0.87); Eosinophils % 2.6 % (0.00-10.9); Hematocrit 30.5 VOL% (42.0-52.0); Immature Granulocytes % 1.1 %; Lymphocytes # 1.1 10*3/uL (1.4-4.0); Lymphocytes % 12.6 % (21.2-54.2); Mean Corpuscular HGB Conc 29.5 GM/DL (32-36); Mean Corpuscular Volume 96.8 FL (87-102); Mean Platelet Volume 9.1 FL (9.6-12.0); Monocytes % 8.5 % (1.7-12.7); Neutrophils % 74.6 % (38.7-73.9); Platelet Count 298 T/CUMM (130-400); Red Blood Count 3.15 MC/CUMM (3.8-5.5); Red Cell Distribution Width 16.1 % (9.3-17.3); White Blood Count 8.9 T/CUMM (4-12)
[2021-07-15 04:53] LABS: Calcium 9.5 MG/DL (8.5-10.1); Osmolality,Calculated 284.3 MOS/KG (273-304); Potassium 3.7 MMOL/L (3.5-5.1)
[2021-07-15] MEDS: INSULIN REGULAR 100 UNIT/ML SUBCUT SCH ×2 (10:00→12:12)
[2021-07-15] MEDS: PANTOPRAZOLE 40 MG VIAL IV SCH (10:12)
[2021-07-15] MEDS: FUROSEMIDE 40 MG/4 ML VIAL IV SCH (10:12)
[2021-07-15] MEDS: PIPERACILLIN/TAZOBACTAM 3,375 MG in SODIUM CHLORIDE 0.9% 100 ML IV SCH (10:18)
[2021-07-15] MEDS: TICAGRELOR 90 MG TABLET PO SCH (10:20)
[2021-07-15] MEDS: METOPROLOL TARTRATE 25 MG TABLET PO SCH (10:21)
[2021-07-15] MEDS: POTASSIUM CHLORIDE 20 MEQ TABLET PO SCH (10:21)
[2021-07-15] MEDS: DOCUSATE SODIUM 100 MG CAPSULE PO SCH (10:21)
[2021-07-15] MEDS: FERROUS SULFATE 325 MG TABLET PO SCH (10:21)
[2021-07-15] MEDS: ENOXAPARIN 40 MG/0.4 ML SYRINGE SUBCUT SCH (10:22)
[2021-07-15] MEDS: AMIODARONE 200 MG TABLET PO SCH (10:22)
[2021-07-15] MEDS: LORATADINE 10 MG TABLET PO SCH (10:22)
[2021-07-15] MEDS: FLUTICASONE 50 MCG NASAL SPRAY 16 GM BOTTLE BOTH NARES SCH (10:34)
[2021-07-15 12:44] VITALS: BP 122/64
== END 2021-07-15 15:02 | disposition home health service (06) | DRG 871 ==
LOC: N.ED 03:11 → SUATTDRO 05:45 → N.EDINP 05:45 → N.CC 06:08 → N.TELES 07-12 12:45
PROVIDERS: ADMIT Internal Medicine; ATTEND Internal Medicine Nephrology

== ENCOUNTER 2021-08-03 09:53 | Inpatient (IN) ==
[2021-08-03] MEDS ORDERED: ASPIRIN 325 MG TABLET PO STA (10:07)
[2021-08-03] MEDS ORDERED: NITROGLYCERIN SL 0.4 MG TABLET SL STA (10:19)
[2021-08-03] MEDS ORDERED: FUROSEMIDE 100 MG/10 ML VIAL IV STA (10:23)
[2021-08-03 10:30] LABS: Basophils # 0.1 10*3/uL (0.0-0.2); Basophils % 0.5 % (0.0-0.8); Eosinophils # 0.1 10*3/uL (0.0-0.87); Eosinophils % 0.8 % (0.00-10.9); Hematocrit 36.4 VOL% (42.0-52.0); Hemoglobin 11.1 GM/DL (14.0-18.0); Immature Granulocytes % 0.7 %; Immature Granulocytes Absolute 0.09 #; Lymphocytes # 1.3 10*3/uL (1.4-4.0); Lymphocytes % 9.1 % (21.2-54.2); Mean Corpuscular HGB Conc 30.5 GM/DL (32-36); Mean Corpuscular Volume 92.4 FL (87-102); Mean Platelet Volume 9.4 FL (9.6-12.0); Neutrophils % 82.9 % (38.7-73.9); Platelet Count 286 T/CUMM (130-400); Red Blood Count 3.94 MC/CUMM (3.8-5.5); Red Cell Distribution Width 15.2 % (9.3-17.3); White Blood Count 13.7 T/CUMM (4-12)
[2021-08-03] MEDS ORDERED: VANCOMYCIN INJ 1,250 MG in SODIUM CHLORIDE 0.9% 250 ML IV STA (10:35)
[2021-08-03] MEDS ORDERED: CEFEPIME 2,000 MG in SODIUM CHLORIDE 0.9% 100 ML IV STA (10:35)
[2021-08-03 10:43] LABS: PT Patient Result 11.4 SECS (10.5-12.0); Partial Thromboplastin Time 26.7 SECS (23.8-32.1)
[2021-08-03 11:01] LABS: Albumin 2.9 G/DL (3.4-5.0); Bilirubin,Total 0.6 MG/DL (0.20-1.00); Calcium 9.5 MG/DL (8.5-10.1); Osmolality,Calculated 289.4 MOS/KG (273-304); Potassium 3.6 MMOL/L (3.5-5.1); Total Protein 7.7 G/DL (6.4-8.2)
[2021-08-03 11:04] LABS: ABG Base Excess 3.3 MMOL/L (-2.5-2.5); ABG HCO3 27.2 MMOL/L (20-26); ABG Oxygen Saturation 90.8 % (95-100); ABG PH 7.479 (7.35-7.45); ABG PO2 58.6 MM HG (80-95); ABG TCO2 24.1 MMOL/L (23-27)
[2021-08-03] MEDS ORDERED: HYDROmorphone 2 MG/1 ML VIAL IV STA (11:37)
[2021-08-03] MEDS ORDERED: GLUCAGON 1 MG VIAL IM PRN (12:31)
[2021-08-03] MEDS ORDERED: hydrALAZINE 20 MG/1 ML VIAL IV PRN (12:31)
[2021-08-03] MEDS ORDERED: ACETAMINOPHEN 325 MG TABLET PO PRN (12:31)
[2021-08-03] MEDS ORDERED: DEXTROSE 50% 25 GM/50 ML SYRINGE IV PRN (12:41)
[2021-08-03] MEDS: ALBUTEROL/IPRATROPIUM 3 ML NEB RESP TX SCH ×2 (13:45→19:42)
[2021-08-03] MEDS: ENOXAPARIN 40 MG/0.4 ML SYRINGE SUBCUT SCH (16:32)
[2021-08-03] MEDS: FUROSEMIDE 40 MG/4 ML VIAL IV SCH (16:32)
[2021-08-03] MEDS: INSULIN LISPRO 100 UNIT/ML SUBCUT SCH ×2 (17:20→22:05)
[2021-08-03] MEDS: CEFEPIME 1,000 MG in SODIUM CHLORIDE 0.9% 100 ML IV SCH (17:21)
[2021-08-03] MEDS: DOXYCYCLINE HYCLATE INJ 100 MG in SODIUM CHLORIDE 0.9% 100 ML IV SCH (17:52)
[2021-08-03] MEDS ORDERED: CEFEPIME 2,000 MG in SODIUM CHLORIDE 0.9% 100 ML IV SCH (18:30)
[2021-08-03] MEDS: INSULIN GLARGINE 100 UNIT/ML SUBCUT SCH (22:02)
[2021-08-03] MEDS: FERROUS SULFATE 325 MG TABLET PO SCH (22:05)
[2021-08-03] MEDS: AMIODARONE 200 MG TABLET PO SCH (22:05)
[2021-08-03] MEDS: TICAGRELOR 90 MG TABLET PO SCH (22:05)
[2021-08-03] MEDS: FLUTICASONE 50 MCG NASAL SPRAY 16 GM BOTTLE BOTH NARES SCH (22:06)
[2021-08-03] MEDS: METOPROLOL TARTRATE 25 MG TABLET PO SCH (22:06)
[2021-08-04] MEDS: ALBUTEROL/IPRATROPIUM 3 ML NEB RESP TX SCH ×4 (00:21→19:27)
[2021-08-04] MEDS: CEFEPIME 1,000 MG in SODIUM CHLORIDE 0.9% 100 ML IV SCH ×3 (02:01→17:50)
[2021-08-04] MEDS: DOXYCYCLINE HYCLATE INJ 100 MG in SODIUM CHLORIDE 0.9% 100 ML IV SCH ×2 (05:44→20:50)
[2021-08-04 06:49] LABS: Basophils # 0.1 10*3/uL (0.0-0.2); Basophils % 0.7 % (0.0-0.8); Eosinophils # 0.6 10*3/uL (0.0-0.87); Eosinophils % 6.2 % (0.00-10.9); Hematocrit 29.3 VOL% (42.0-52.0); Hemoglobin 9.1 GM/DL (14.0-18.0); Immature Granulocytes % 0.4 %; Immature Granulocytes Absolute 0.04 #; Lymphocytes # 1.3 10*3/uL (1.4-4.0); Lymphocytes % 12.4 % (21.2-54.2); Mean Corpuscular HGB Conc 31.1 GM/DL (32-36); Mean Corpuscular Volume 93.3 FL (87-102); Monocytes % 10.5 % (1.7-12.7); Neutrophils % 69.8 % (38.7-73.9); Platelet Count 230 T/CUMM (130-400); Red Blood Count 3.14 MC/CUMM (3.8-5.5); Red Cell Distribution Width 15.5 % (9.3-17.3); White Blood Count 10.3 T/CUMM (4-12)
[2021-08-04 06:54] LABS: Calcium 9.5 MG/DL (8.5-10.1); Osmolality,Calculated 292.8 MOS/KG (273-304); Potassium 3.8 MMOL/L (3.5-5.1)
[2021-08-04] MEDS: FERROUS SULFATE 325 MG TABLET PO SCH ×2 (09:02→21:01)
[2021-08-04] MEDS: PANTOPRAZOLE 40 MG TABLET PO SCH (09:02)
[2021-08-04] MEDS: AMIODARONE 200 MG TABLET PO SCH ×2 (09:02→21:01)
[2021-08-04] MEDS: ISOSORBIDE MONONITRATE 30 MG TABLET PO SCH (09:02)
[2021-08-04] MEDS: LORATADINE 10 MG TABLET PO SCH (09:02)
[2021-08-04] MEDS: TICAGRELOR 90 MG TABLET PO SCH ×2 (09:02→21:01)
[2021-08-04] MEDS: FLUTICASONE 50 MCG NASAL SPRAY 16 GM BOTTLE BOTH NARES SCH ×2 (09:08→21:07)
[2021-08-04] MEDS: SPIRONOLACTONE 25 MG TABLET PO SCH (09:12)
[2021-08-04] MEDS: DOCUSATE SODIUM 100 MG CAPSULE PO SCH (09:14)
[2021-08-04] MEDS: CHOLECALCIFEROL 1,000 UNIT TABLET PO SCH (10:05)
[2021-08-04] MEDS: METOPROLOL TARTRATE 25 MG TABLET PO SCH ×2 (10:06→21:01)
[2021-08-04] MEDS: INSULIN GLARGINE 100 UNIT/ML SUBCUT SCH ×2 (10:06→21:02)
[2021-08-04] MEDS: INSULIN LISPRO 100 UNIT/ML SUBCUT SCH ×4 (10:07→21:01)
[2021-08-04] MEDS: FUROSEMIDE 40 MG/4 ML VIAL IV SCH ×2 (10:15→17:11)
[2021-08-04] MEDS ORDERED: oxyCODONE/ACETAMINOPHEN 5-325 MG TABLET PO PRN (10:15)
[2021-08-04] MEDS: ALUMINUM/MAGNES/SIMETH MAX STR 30 ML UDCUP PO PRN ×2 (10:39→20:50)
[2021-08-04] MEDS: methylPREDNISolone SOD SUC 40 MG/1 ML VIAL IV SCH ×2 (10:41→17:11)
[2021-08-04] MEDS: VANCOMYCIN INJ 1,000 MG in SODIUM CHLORIDE 0.9% 250 ML IV SCH (12:41)
[2021-08-04] MEDS: ENOXAPARIN 40 MG/0.4 ML SYRINGE SUBCUT SCH (17:47)
[2021-08-05] MEDS: ALBUTEROL/IPRATROPIUM 3 ML NEB RESP TX SCH ×5 (00:01→21:40)
[2021-08-05] MEDS: CEFEPIME 1,000 MG in SODIUM CHLORIDE 0.9% 100 ML IV SCH ×3 (01:02→18:10)
[2021-08-05] MEDS: methylPREDNISolone SOD SUC 40 MG/1 ML VIAL IV SCH ×3 (01:03→18:13)
[2021-08-05 06:20] LABS: Basophils % 0.2 % (0.0-0.8); Eosinophils % 0.1 % (0.00-10.9); Hematocrit 33.3 VOL% (42.0-52.0); Immature Granulocytes % 0.6 %; Immature Granulocytes Absolute 0.07 #; Lymphocytes # 0.7 10*3/uL (1.4-4.0); Lymphocytes % 5.9 % (21.2-54.2); Mean Corpuscular Volume 94.1 FL (87-102); Mean Platelet Volume 9.9 FL (9.6-12.0); Monocytes % 1.9 % (1.7-12.7); Neutrophils % 91.3 % (38.7-73.9); Platelet Count 264 T/CUMM (130-400); Red Blood Count 3.54 MC/CUMM (3.8-5.5); Red Cell Distribution Width 15.3 % (9.3-17.3); White Blood Count 11.3 T/CUMM (4-12)
[2021-08-05 06:41] LABS: Calcium 10.9 MG/DL (8.5-10.1); Osmolality,Calculated 290.7 MOS/KG (273-304); Potassium 4.4 MMOL/L (3.5-5.1)
[2021-08-05 06:44] LABS: Band Neutrophils 1 % (0-10); Lymphocytes 3 % (20-55); Segmented Neutrophils 92 % (50-85); Total Cells Counted 100
[2021-08-05 06:45] LABS: Hypochromasia 1+; Microcytosis 1+; Ovalocytes Slight; Platelet Estimate Normal
[2021-08-05] MEDS: ONDANSETRON 4 MG/2 ML VIAL IV PRN (06:59)
[2021-08-05] MEDS: INSULIN LISPRO 100 UNIT/ML SUBCUT SCH ×4 (07:33→21:08)
[2021-08-05] MEDS: DOCUSATE SODIUM 100 MG CAPSULE PO SCH (08:26)
[2021-08-05] MEDS: AMIODARONE 200 MG TABLET PO SCH ×2 (08:26→21:06)
[2021-08-05] MEDS: TICAGRELOR 90 MG TABLET PO SCH ×2 (08:26→21:06)
[2021-08-05] MEDS: CHOLECALCIFEROL 1,000 UNIT TABLET PO SCH (08:26)
[2021-08-05] MEDS: LORATADINE 10 MG TABLET PO SCH (08:27)
[2021-08-05] MEDS: SPIRONOLACTONE 25 MG TABLET PO SCH (08:27)
[2021-08-05] MEDS: FERROUS SULFATE 325 MG TABLET PO SCH ×2 (08:27→21:06)
[2021-08-05] MEDS: ISOSORBIDE MONONITRATE 30 MG TABLET PO SCH (08:27)
[2021-08-05] MEDS: METOPROLOL TARTRATE 25 MG TABLET PO SCH ×2 (08:27→21:06)
[2021-08-05] MEDS: PANTOPRAZOLE 40 MG TABLET PO SCH (08:27)
[2021-08-05] MEDS: FUROSEMIDE 40 MG/4 ML VIAL IV SCH (09:06)
[2021-08-05] MEDS: DOXYCYCLINE HYCLATE INJ 100 MG in SODIUM CHLORIDE 0.9% 100 ML IV SCH ×2 (09:06→21:08)
[2021-08-05] MEDS: SUCRALFATE 1 GM/10 ML UDCUP PO SCH ×4 (09:07→21:06)
[2021-08-05] MEDS: INSULIN GLARGINE 100 UNIT/ML SUBCUT SCH ×2 (09:07→21:08)
[2021-08-05] MEDS: FLUTICASONE 50 MCG NASAL SPRAY 16 GM BOTTLE BOTH NARES SCH ×2 (09:07→21:06)
[2021-08-05] MEDS ORDERED: ALUM/MAG/SIMETH/LIDO VISC 1:1 30 ML BOTTLE PO PRN (11:57)
[2021-08-05] MEDS: DAPAGLIFLOZIN 10 MG TABLET PO SCH (12:02)
[2021-08-05] MEDS: VANCOMYCIN INJ 1,000 MG in SODIUM CHLORIDE 0.9% 250 ML IV SCH (12:02)
[2021-08-05] MEDS: ENOXAPARIN 40 MG/0.4 ML SYRINGE SUBCUT SCH (12:41)
[2021-08-05] MEDS: metroNIDAZOLE INJ 500 MG/100 ML PREMIX IV SCH ×2 (15:24→22:56)
[2021-08-05] MEDS ORDERED: FUROSEMIDE 40 MG/4 ML VIAL IV SCH (16:00)
[2021-08-06] MEDS: CEFEPIME 1,000 MG in SODIUM CHLORIDE 0.9% 100 ML IV SCH ×3 (01:27→18:18)
[2021-08-06] MEDS: methylPREDNISolone SOD SUC 40 MG/1 ML VIAL IV SCH ×3 (01:27→18:18)
[2021-08-06] MEDS: ALBUTEROL/IPRATROPIUM 3 ML NEB RESP TX SCH ×4 (01:29→19:30)
[2021-08-06 05:22] LABS: Basophils % 0.1 % (0.0-0.8); Hemoglobin 9.8 GM/DL (14.0-18.0); Immature Granulocytes % 0.7 %; Immature Granulocytes Absolute 0.08 #; Lymphocytes # 0.5 10*3/uL (1.4-4.0); Lymphocytes % 4.6 % (21.2-54.2); Mean Corpuscular HGB Conc 30.6 GM/DL (32-36); Mean Corpuscular Volume 93.3 FL (87-102); Mean Platelet Volume 10.1 FL (9.6-12.0); Neutrophils % 89.6 % (38.7-73.9); Platelet Count 270 T/CUMM (130-400); Red Blood Count 3.43 MC/CUMM (3.8-5.5); Red Cell Distribution Width 15.6 % (9.3-17.3); White Blood Count 11.4 T/CUMM (4-12)
[2021-08-06] MEDS: ALUMINUM/MAGNES/SIMETH MAX STR 30 ML UDCUP PO PRN (05:28)
[2021-08-06 05:39] LABS: Calcium 10.5 MG/DL (8.5-10.1); Osmolality,Calculated 294.5 MOS/KG (273-304); Potassium 4.8 MMOL/L (3.5-5.1)
[2021-08-06 05:46] LABS: Lymphocytes 6 % (20-55); Segmented Neutrophils 92 % (50-85); Total Cells Counted 100
[2021-08-06 05:47] LABS: Hypochromasia Slight; Platelet Estimate Normal
[2021-08-06 05:48] LABS: Microcytosis Slight; Ovalocytes Few; Polychromasia Slight
[2021-08-06] MEDS: metroNIDAZOLE INJ 500 MG/100 ML PREMIX IV SCH ×2 (07:19→18:36)
[2021-08-06] MEDS: SUCRALFATE 1 GM/10 ML UDCUP PO SCH ×4 (08:14→21:00)
[2021-08-06] MEDS ORDERED: FUROSEMIDE 40 MG/4 ML VIAL IV SCH ×2 (09:00)
[2021-08-06] MEDS: INSULIN LISPRO 100 UNIT/ML SUBCUT SCH ×4 (09:07→21:02)
[2021-08-06] MEDS: DOXYCYCLINE HYCLATE INJ 100 MG in SODIUM CHLORIDE 0.9% 100 ML IV SCH ×2 (09:09→20:59)
[2021-08-06] MEDS: INSULIN GLARGINE 100 UNIT/ML SUBCUT SCH ×2 (09:09→21:02)
[2021-08-06] MEDS: TICAGRELOR 90 MG TABLET PO SCH ×2 (09:19→21:01)
[2021-08-06] MEDS: METOPROLOL TARTRATE 25 MG TABLET PO SCH ×2 (09:20→21:01)
[2021-08-06] MEDS: ISOSORBIDE MONONITRATE 30 MG TABLET PO SCH (09:20)
[2021-08-06] MEDS: AMIODARONE 200 MG TABLET PO SCH ×2 (09:20→21:01)
[2021-08-06] MEDS: PANTOPRAZOLE 40 MG TABLET PO SCH (09:22)
[2021-08-06] MEDS: DAPAGLIFLOZIN 10 MG TABLET PO SCH (09:22)
[2021-08-06] MEDS: LORATADINE 10 MG TABLET PO SCH (09:24)
[2021-08-06] MEDS: DOCUSATE SODIUM 100 MG CAPSULE PO SCH (09:24)
[2021-08-06] MEDS: FERROUS SULFATE 325 MG TABLET PO SCH ×2 (09:25→21:01)
[2021-08-06] MEDS: FLUTICASONE 50 MCG NASAL SPRAY 16 GM BOTTLE BOTH NARES SCH ×2 (09:26→21:07)
[2021-08-06] MEDS: CHOLECALCIFEROL 1,000 UNIT TABLET PO SCH (09:27)
[2021-08-06] MEDS ORDERED: metOLazone 5 MG TABLET PO ONE (10:16)
[2021-08-06] MEDS: VANCOMYCIN INJ 1,000 MG in SODIUM CHLORIDE 0.9% 250 ML IV SCH (11:57)
[2021-08-06] MEDS: ENOXAPARIN 40 MG/0.4 ML SYRINGE SUBCUT SCH (13:39)
[2021-08-06] MEDS ORDERED: FUROSEMIDE 20 MG/2 ML VIAL IV ONE (14:58)
[2021-08-07] MEDS: ALBUTEROL/IPRATROPIUM 3 ML NEB RESP TX SCH ×4 (00:35→21:35)
[2021-08-07] MEDS: methylPREDNISolone SOD SUC 40 MG/1 ML VIAL IV SCH ×3 (01:39→17:55)
[2021-08-07] MEDS: CEFEPIME 1,000 MG in SODIUM CHLORIDE 0.9% 100 ML IV SCH ×2 (01:39→09:28)
[2021-08-07 05:11] LABS: Basophils % 0.1 % (0.0-0.8); Hematocrit 33.1 VOL% (42.0-52.0); Hemoglobin 10.1 GM/DL (14.0-18.0); Immature Granulocytes % 0.7 %; Immature Granulocytes Absolute 0.08 #; Lymphocytes # 0.5 10*3/uL (1.4-4.0); Lymphocytes % 3.9 % (21.2-54.2); Mean Corpuscular HGB Conc 30.5 GM/DL (32-36); Monocytes % 4.9 % (1.7-12.7); Neutrophils % 90.4 % (38.7-73.9); Platelet Count 324 T/CUMM (130-400); Red Blood Count 3.56 MC/CUMM (3.8-5.5); Red Cell Distribution Width 15.5 % (9.3-17.3)
[2021-08-07 05:24] LABS: Calcium 10.9 MG/DL (8.5-10.1); Osmolality,Calculated 293.8 MOS/KG (273-304); Potassium 4.8 MMOL/L (3.5-5.1)
[2021-08-07 05:42] LABS: Lymphocytes 3 % (20-55); Segmented Neutrophils 93 % (50-85); Total Cells Counted 100
[2021-08-07 05:43] LABS: Hypochromasia 1+; Microcytosis 1+; Ovalocytes Slight; Platelet Estimate Normal
[2021-08-07] MEDS: SUCRALFATE 1 GM/10 ML UDCUP PO SCH ×4 (07:39→21:27)
[2021-08-07] MEDS: INSULIN GLARGINE 100 UNIT/ML SUBCUT SCH ×3 (07:41→21:34)
[2021-08-07] MEDS: INSULIN LISPRO 100 UNIT/ML SUBCUT SCH ×4 (07:41→21:34)
[2021-08-07] MEDS: DOXYCYCLINE HYCLATE INJ 100 MG in SODIUM CHLORIDE 0.9% 100 ML IV SCH ×2 (07:42→21:31)
[2021-08-07] MEDS: AMIODARONE 200 MG TABLET PO SCH ×2 (09:21→21:27)
[2021-08-07] MEDS: CHOLECALCIFEROL 1,000 UNIT TABLET PO SCH (09:21)
[2021-08-07] MEDS: METOPROLOL TARTRATE 25 MG TABLET PO SCH ×2 (09:21→21:27)
[2021-08-07] MEDS: FERROUS SULFATE 325 MG TABLET PO SCH ×2 (09:21→21:27)
[2021-08-07] MEDS: DAPAGLIFLOZIN 10 MG TABLET PO SCH (09:21)
[2021-08-07] MEDS: DOCUSATE SODIUM 100 MG CAPSULE PO SCH (09:22)
[2021-08-07] MEDS: PANTOPRAZOLE 40 MG TABLET PO SCH (09:22)
[2021-08-07] MEDS: ISOSORBIDE MONONITRATE 30 MG TABLET PO SCH (09:22)
[2021-08-07] MEDS: TICAGRELOR 90 MG TABLET PO SCH ×2 (09:22→21:27)
[2021-08-07] MEDS: LORATADINE 10 MG TABLET PO SCH (09:23)
[2021-08-07] MEDS: FLUTICASONE 50 MCG NASAL SPRAY 16 GM BOTTLE BOTH NARES SCH ×2 (09:30→21:31)
[2021-08-07] MEDS: CEFTAROLINE 400 MG in SODIUM CHLORIDE 0.9% 100 ML IV SCH (11:50)
[2021-08-07] MEDS: ENOXAPARIN 40 MG/0.4 ML SYRINGE SUBCUT SCH (12:31)
[2021-08-07] MEDS ORDERED: ALBUMIN 25% 12.5 GM/50 ML VIAL IV ONE (13:55)
[2021-08-08] MEDS: CEFTAROLINE 400 MG in SODIUM CHLORIDE 0.9% 100 ML IV SCH ×2 (00:15→11:53)
[2021-08-08] MEDS: ALBUTEROL/IPRATROPIUM 3 ML NEB RESP TX SCH ×4 (00:19→19:25)
[2021-08-08] MEDS: methylPREDNISolone SOD SUC 40 MG/1 ML VIAL IV SCH ×3 (01:23→17:05)
[2021-08-08] MEDS: ONDANSETRON 4 MG/2 ML VIAL IV PRN ×2 (04:43→17:07)
[2021-08-08] MEDS: ALBUTEROL 1.25 MG/3 ML NEB RESP TX PRN ×2 (05:12→11:25)
[2021-08-08 05:43] LABS: Basophils % 0.1 % (0.0-0.8); Hematocrit 32.2 VOL% (42.0-52.0); Hemoglobin 9.9 GM/DL (14.0-18.0); Immature Granulocytes % 1.4 %; Immature Granulocytes Absolute 0.13 #; Lymphocytes # 0.3 10*3/uL (1.4-4.0); Lymphocytes % 3.4 % (21.2-54.2); Mean Corpuscular HGB Conc 30.7 GM/DL (32-36); Mean Corpuscular Volume 92.8 FL (87-102); Mean Platelet Volume 10.1 FL (9.6-12.0); Monocytes % 5.5 % (1.7-12.7); NRBC # 0.03 10*3/uL; Neutrophils % 89.6 % (38.7-73.9); Platelet Count 303 T/CUMM (130-400); Red Blood Count 3.47 MC/CUMM (3.8-5.5); Red Cell Distribution Width 15.7 % (9.3-17.3); White Blood Count 9.3 T/CUMM (4-12)
[2021-08-08 06:02] LABS: Calcium 10.7 MG/DL (8.5-10.1); Osmolality,Calculated 299.5 MOS/KG (273-304); Potassium 5.2 MMOL/L (3.5-5.1)
[2021-08-08 06:27] LABS: Hypochromasia 1+; Lymphocytes 4 % (20-55); Microcytosis 1+; Myelocytes 1 %; Ovalocytes Slight; Segmented Neutrophils 90 % (50-85); Total Cells Counted 100
[2021-08-08 06:28] LABS: Platelet Estimate Normal
[2021-08-08] MEDS: ALUMINUM/MAGNES/SIMETH MAX STR 30 ML UDCUP PO PRN ×2 (07:22→21:23)
[2021-08-08] MEDS: AMIODARONE 200 MG TABLET PO SCH ×2 (08:31→21:23)
[2021-08-08] MEDS: INSULIN GLARGINE 100 UNIT/ML SUBCUT SCH ×2 (08:31→21:25)
[2021-08-08] MEDS: INSULIN LISPRO 100 UNIT/ML SUBCUT SCH ×4 (08:31→21:24)
[2021-08-08] MEDS: FERROUS SULFATE 325 MG TABLET PO SCH ×2 (08:31→21:23)
[2021-08-08] MEDS: DAPAGLIFLOZIN 10 MG TABLET PO SCH (08:31)
[2021-08-08] MEDS: CHOLECALCIFEROL 1,000 UNIT TABLET PO SCH (08:31)
[2021-08-08] MEDS: SUCRALFATE 1 GM/10 ML UDCUP PO SCH ×4 (08:32→21:23)
[2021-08-08] MEDS: METOPROLOL TARTRATE 25 MG TABLET PO SCH ×2 (08:32→21:23)
[2021-08-08] MEDS: LORATADINE 10 MG TABLET PO SCH (08:32)
[2021-08-08] MEDS: DOCUSATE SODIUM 100 MG CAPSULE PO SCH (08:32)
[2021-08-08] MEDS: TICAGRELOR 90 MG TABLET PO SCH ×2 (08:32→21:23)
[2021-08-08] MEDS: PANTOPRAZOLE 40 MG TABLET PO SCH (08:32)
[2021-08-08] MEDS: ISOSORBIDE MONONITRATE 30 MG TABLET PO SCH (08:32)
[2021-08-08] MEDS: FLUTICASONE 50 MCG NASAL SPRAY 16 GM BOTTLE BOTH NARES SCH ×2 (08:33→21:34)
[2021-08-08] MEDS: DOXYCYCLINE HYCLATE INJ 100 MG in SODIUM CHLORIDE 0.9% 100 ML IV SCH ×2 (10:42→21:25)
[2021-08-08] MEDS ORDERED: ALBUMIN 25% 12.5 GM/50 ML VIAL IV ONE (13:30)
[2021-08-08] MEDS: ENOXAPARIN 40 MG/0.4 ML SYRINGE SUBCUT SCH (13:31)
[2021-08-08] MEDS ORDERED: FUROSEMIDE 40 MG/4 ML VIAL IV ONE (14:30)
[2021-08-08] MEDS: ACETYLCYSTEINE 20% 800 MG/4 ML VIAL RESP TX SCH ×2 (14:49→19:25)
[2021-08-09] MEDS: CEFTAROLINE 400 MG in SODIUM CHLORIDE 0.9% 100 ML IV SCH ×2 (00:59→15:50)
[2021-08-09] MEDS: ALBUTEROL/IPRATROPIUM 3 ML NEB RESP TX SCH ×4 (01:06→19:25)
[2021-08-09] MEDS: methylPREDNISolone SOD SUC 40 MG/1 ML VIAL IV SCH ×3 (02:01→17:29)
[2021-08-09 06:40] LABS: Basophils % 0.1 % (0.0-0.8); Hematocrit 33.1 VOL% (42.0-52.0); Hemoglobin 9.8 GM/DL (14.0-18.0); Immature Granulocytes % 1.2 %; Immature Granulocytes Absolute 0.11 #; Lymphocytes # 0.4 10*3/uL (1.4-4.0); Lymphocytes % 3.9 % (21.2-54.2); Mean Corpuscular HGB Conc 29.6 GM/DL (32-36); Mean Corpuscular Volume 93.5 FL (87-102); Mean Platelet Volume 10.2 FL (9.6-12.0); NRBC # 0.03 10*3/uL; Neutrophils % 88.8 % (38.7-73.9); Platelet Count 313 T/CUMM (130-400); Red Blood Count 3.54 MC/CUMM (3.8-5.5); Red Cell Distribution Width 15.7 % (9.3-17.3); White Blood Count 9.1 T/CUMM (4-12)
[2021-08-09 06:52] LABS: Albumin 3.2 G/DL (3.4-5.0); Calcium 11.2 MG/DL (8.5-10.1); Osmolality,Calculated 301.4 MOS/KG (273-304); Potassium 5.1 MMOL/L (3.5-5.1)
[2021-08-09 07:04] LABS: Hypochromasia 1+; Lymphocytes 3 % (20-55); Microcytosis 1+; Myelocytes 1 %; Ovalocytes Few; Segmented Neutrophils 90 % (50-85); Target Cells Slight; Total Cells Counted 100
[2021-08-09 07:05] LABS: Platelet Estimate Normal
[2021-08-09] MEDS: DAPAGLIFLOZIN 10 MG TABLET PO SCH (08:30)
[2021-08-09] MEDS: PANTOPRAZOLE 40 MG TABLET PO SCH (08:30)
[2021-08-09] MEDS: SUCRALFATE 1 GM/10 ML UDCUP PO SCH ×4 (08:30→21:27)
[2021-08-09] MEDS: METOPROLOL TARTRATE 25 MG TABLET PO SCH ×2 (08:30→21:30)
[2021-08-09] MEDS: TICAGRELOR 90 MG TABLET PO SCH ×2 (08:30→21:42)
[2021-08-09] MEDS: ISOSORBIDE MONONITRATE 30 MG TABLET PO SCH (08:30)
[2021-08-09] MEDS: FERROUS SULFATE 325 MG TABLET PO SCH ×2 (08:30→21:30)
[2021-08-09] MEDS: LORATADINE 10 MG TABLET PO SCH (08:30)
[2021-08-09] MEDS: DOCUSATE SODIUM 100 MG CAPSULE PO SCH (08:30)
[2021-08-09] MEDS: INSULIN LISPRO 100 UNIT/ML SUBCUT SCH ×4 (08:31→21:42)
[2021-08-09] MEDS: CHOLECALCIFEROL 1,000 UNIT TABLET PO SCH (08:31)
[2021-08-09] MEDS: AMIODARONE 200 MG TABLET PO SCH ×2 (08:31→21:30)
[2021-08-09] MEDS: DOXYCYCLINE HYCLATE INJ 100 MG in SODIUM CHLORIDE 0.9% 100 ML IV SCH ×2 (08:32→21:25)
[2021-08-09] MEDS: FLUTICASONE 50 MCG NASAL SPRAY 16 GM BOTTLE BOTH NARES SCH ×2 (08:32→21:36)
[2021-08-09] MEDS: INSULIN GLARGINE 100 UNIT/ML SUBCUT SCH ×2 (09:05→21:36)
[2021-08-09] MEDS: ACETYLCYSTEINE 20% 800 MG/4 ML VIAL RESP TX SCH (09:44)
[2021-08-09] MEDS: ENOXAPARIN 40 MG/0.4 ML SYRINGE SUBCUT SCH ×2 (13:56→13:58)
[2021-08-10] MEDS: ALBUTEROL/IPRATROPIUM 3 ML NEB RESP TX SCH ×4 (00:30→19:21)
[2021-08-10] MEDS: methylPREDNISolone SOD SUC 40 MG/1 ML VIAL IV SCH ×4 (02:02→23:47)
[2021-08-10] MEDS: CEFTAROLINE 400 MG in SODIUM CHLORIDE 0.9% 100 ML IV SCH ×2 (04:47→15:30)
[2021-08-10 06:41] LABS: Hematocrit 30.5 VOL% (42.0-52.0); Hemoglobin 9.2 GM/DL (14.0-18.0); Immature Granulocytes % 0.9 %; Immature Granulocytes Absolute 0.07 #; Lymphocytes # 0.3 10*3/uL (1.4-4.0); Lymphocytes % 3.6 % (21.2-54.2); Mean Corpuscular HGB Conc 30.2 GM/DL (32-36); Mean Corpuscular Volume 93.8 FL (87-102); NRBC # 0.03 10*3/uL; Neutrophils % 89.5 % (38.7-73.9); Platelet Count 252 T/CUMM (130-400); Red Blood Count 3.25 MC/CUMM (3.8-5.5); Red Cell Distribution Width 15.9 % (9.3-17.3); White Blood Count 7.7 T/CUMM (4-12)
[2021-08-10 07:05] LABS: Albumin 2.8 G/DL (3.4-5.0); Calcium 10.4 MG/DL (8.5-10.1); Osmolality,Calculated 306.8 MOS/KG (273-304); Potassium 5.5 MMOL/L (3.5-5.1)
[2021-08-10 07:18] LABS: Lymphocytes 3 % (20-55); Platelet Estimate Normal; Segmented Neutrophils 94 % (50-85); Total Cells Counted 100
[2021-08-10] MEDS: LORATADINE 10 MG TABLET PO SCH (08:29)
[2021-08-10] MEDS: CHOLECALCIFEROL 1,000 UNIT TABLET PO SCH (08:29)
[2021-08-10] MEDS: PANTOPRAZOLE 40 MG TABLET PO SCH (08:29)
[2021-08-10] MEDS: DOCUSATE SODIUM 100 MG CAPSULE PO SCH (08:29)
[2021-08-10] MEDS: ISOSORBIDE MONONITRATE 30 MG TABLET PO SCH (08:29)
[2021-08-10] MEDS: TICAGRELOR 90 MG TABLET PO SCH ×2 (08:29→21:40)
[2021-08-10] MEDS: SUCRALFATE 1 GM/10 ML UDCUP PO SCH ×4 (08:29→21:41)
[2021-08-10] MEDS: INSULIN LISPRO 100 UNIT/ML SUBCUT SCH ×4 (08:30→21:43)
[2021-08-10] MEDS: DAPAGLIFLOZIN 10 MG TABLET PO SCH (08:30)
[2021-08-10] MEDS: FERROUS SULFATE 325 MG TABLET PO SCH ×2 (08:30→21:40)
[2021-08-10] MEDS: METOPROLOL TARTRATE 25 MG TABLET PO SCH ×2 (08:30→21:40)
[2021-08-10] MEDS: AMIODARONE 200 MG TABLET PO SCH ×2 (08:30→21:40)
[2021-08-10] MEDS: FUROSEMIDE 80 MG TABLET PO SCH (08:30)
[2021-08-10] MEDS: DOXYCYCLINE HYCLATE INJ 100 MG in SODIUM CHLORIDE 0.9% 100 ML IV SCH ×2 (08:31→21:45)
[2021-08-10] MEDS: FLUTICASONE 50 MCG NASAL SPRAY 16 GM BOTTLE BOTH NARES SCH ×2 (08:31→21:46)
[2021-08-10] MEDS: INSULIN GLARGINE 100 UNIT/ML SUBCUT SCH ×2 (08:31→21:42)
[2021-08-10] MEDS ORDERED: FUROSEMIDE 40 MG TABLET PO SCH (09:00)
[2021-08-10] MEDS: ENOXAPARIN 40 MG/0.4 ML SYRINGE SUBCUT SCH (13:07)
[2021-08-11] MEDS: ALBUTEROL/IPRATROPIUM 3 ML NEB RESP TX SCH ×3 (00:58→13:45)
[2021-08-11] MEDS: CEFTAROLINE 400 MG in SODIUM CHLORIDE 0.9% 100 ML IV SCH (03:35)
[2021-08-11 06:33] LABS: Calcium 10.4 MG/DL (8.5-10.1); Osmolality,Calculated 312.4 MOS/KG (273-304)
[2021-08-11] MEDS: INSULIN LISPRO 100 UNIT/ML SUBCUT SCH ×3 (07:52→19:38)
[2021-08-11] MEDS: FLUTICASONE 50 MCG NASAL SPRAY 16 GM BOTTLE BOTH NARES SCH (09:45)
[2021-08-11] MEDS: DAPAGLIFLOZIN 10 MG TABLET PO SCH (09:46)
[2021-08-11] MEDS: INSULIN GLARGINE 100 UNIT/ML SUBCUT SCH (09:46)
[2021-08-11] MEDS: TICAGRELOR 90 MG TABLET PO SCH (09:47)
[2021-08-11] MEDS: ISOSORBIDE MONONITRATE 30 MG TABLET PO SCH (09:47)
[2021-08-11] MEDS: FUROSEMIDE 80 MG TABLET PO SCH (09:47)
[2021-08-11] MEDS: FERROUS SULFATE 325 MG TABLET PO SCH (09:47)
[2021-08-11] MEDS: PANTOPRAZOLE 40 MG TABLET PO SCH (09:47)
[2021-08-11] MEDS: LORATADINE 10 MG TABLET PO SCH (09:47)
[2021-08-11] MEDS: AMIODARONE 200 MG TABLET PO SCH (09:48)
[2021-08-11] MEDS: METOPROLOL TARTRATE 25 MG TABLET PO SCH (09:48)
[2021-08-11] MEDS: SUCRALFATE 1 GM/10 ML UDCUP PO SCH ×3 (09:48→19:38)
[2021-08-11] MEDS: CHOLECALCIFEROL 1,000 UNIT TABLET PO SCH (10:00)
[2021-08-11] MEDS: DOCUSATE SODIUM 100 MG CAPSULE PO SCH (10:00)
[2021-08-11] MEDS: ENOXAPARIN 40 MG/0.4 ML SYRINGE SUBCUT SCH ×2 (13:39→13:41)
[2021-08-11 16:24] VITALS: BP 116/55
[2021-08-12] MEDS ORDERED: FUROSEMIDE 40 MG TABLET PO SCH (09:00)
== END 2021-08-11 17:18 | disposition home or self-care (01) | DRG 193 ==
LOC: EDUNIT# → EDBD → N.ED 09:53 → MERGE 09:53 → N.EDINP 12:31 → SUATTDRO 12:31 → N.3E 13:57
PROVIDERS: ADMIT Internal Medicine; ATTEND Internal Medicine

== ENCOUNTER 2021-09-21 02:17 | Inpatient (IN) ==
[2021-09-21] MEDS ORDERED: FUROSEMIDE 100 MG/10 ML VIAL IV STA (02:49)
[2021-09-21] MEDS ORDERED: ASPIRIN 325 MG TABLET PO STA (02:49)
[2021-09-21] MEDS ORDERED: ONDANSETRON 4 MG/2 ML VIAL IV STA (02:49)
[2021-09-21] MEDS ORDERED: ALBUTEROL NEB SOLN 5 MG/ML 20 ML/BOTTLE CONT NEB SCH (03:00)
[2021-09-21 03:13] LABS: Allen Test Positive
[2021-09-21 03:14] LABS: ABG Base Excess 2.4 MMOL/L (-2.5-2.5); ABG HCO3 26.4 MMOL/L (20-26); ABG Oxygen Saturation 92.5 % (95-100); ABG PH 7.441 (7.35-7.45); ABG PO2 64.6 MM HG (80-95); ABG TCO2 23.3 MMOL/L (23-27)
[2021-09-21 03:27] LABS: Basophils # 0.1 10*3/uL (0.0-0.2); Basophils % 0.6 % (0.0-0.8); Eosinophils # 0.4 10*3/uL (0.0-0.87); Eosinophils % 2.3 % (0.00-10.9); Hematocrit 39.3 VOL% (42.0-52.0); Hemoglobin 12.3 GM/DL (14.0-18.0); Immature Granulocytes % 0.8 %; Immature Granulocytes Absolute 0.14 #; Lymphocytes # 2.3 10*3/uL (1.4-4.0); Lymphocytes % 12.7 % (21.2-54.2); Mean Corpuscular HGB Conc 31.3 GM/DL (32-36); Mean Corpuscular Volume 85.4 FL (87-102); Mean Platelet Volume 9.3 FL (9.6-12.0); Monocytes % 9.2 % (1.7-12.7); Neutrophils % 74.4 % (38.7-73.9); Platelet Count 284 T/CUMM (130-400); Red Cell Distribution Width 15.7 % (9.3-17.3); White Blood Count 17.8 T/CUMM (4-12)
[2021-09-21] MEDS ORDERED: PIPERACILLIN/TAZOBACTAM 3,375 MG in SODIUM CHLORIDE 0.9% 100 ML IV STA (03:29)
[2021-09-21 03:48] LABS: Albumin 3.1 G/DL (3.4-5.0); Bilirubin,Total 0.5 MG/DL (0.20-1.00); Calcium 9.8 MG/DL (8.5-10.1); Osmolality,Calculated 285.7 MOS/KG (273-304); Potassium 3.7 MMOL/L (3.5-5.1); Total Protein 7.6 G/DL (6.4-8.2)
[2021-09-21] MEDS ORDERED: ACETAMINOPHEN 325 MG TABLET PO PRN (04:51)
[2021-09-21] MEDS ORDERED: GLUCAGON 1 MG VIAL IM PRN (04:51)
[2021-09-21] MEDS ORDERED: DEXTROSE 50% 25 GM/50 ML VIAL IV PRN (04:51)
[2021-09-21] MEDS ORDERED: MAGNESIUM SULF RIDER 4 GM/100 ML PREMIX IV PRN (05:02)
[2021-09-21] MEDS ORDERED: MAGNESIUM SULF RIDER 2 GM/50 ML PREMIX IV PRN (05:02)
[2021-09-21] MEDS ORDERED: DEXTROSE 50% 25 GM/50 ML SYRINGE IV PRN (05:13)
[2021-09-21 06:22] LABS: Bilirubin,Urine Negative (Negative); Blood, Urine Negative (Negative); Glucose,Urine (UA) >=500 mg/dL (Negative); Ketones,Urine Negative (Negative); Nitrite,Urine Negative (Negative); Protein,Urine 100 MG/DL; RBC,Urine 1 /HPF (0-4); Urine Appearance CLEAR (Clear); Urine Color Straw (Yellow); Urine Urobilinogen < 2.0 EU/DL (<2.0)
[2021-09-21] MEDS: ALBUTEROL/IPRATROPIUM 3 ML NEB RESP TX SCH ×3 (07:40→20:24)
[2021-09-21] MEDS: INSULIN REGULAR 100 UNIT/ML SUBCUT SCH ×4 (07:47→21:01)
[2021-09-21] MEDS: FUROSEMIDE 40 MG/4 ML VIAL IV SCH ×2 (08:31→17:23)
[2021-09-21] MEDS ORDERED: METOPROLOL TARTRATE 25 MG TABLET PO SCH (09:00)
[2021-09-21] MEDS ORDERED: CHOLECALCIFEROL 1,000 UNIT TABLET PO SCH (09:00)
[2021-09-21] MEDS ORDERED: FERROUS SULFATE 325 MG TABLET PO SCH (09:00)
[2021-09-21] MEDS ORDERED: AMIODARONE 200 MG TABLET PO SCH (09:00)
[2021-09-21] MEDS ORDERED: ISOSORBIDE MONONITRATE 30 MG TABLET PO SCH (09:00)
[2021-09-21] MEDS ORDERED: TICAGRELOR 90 MG TABLET PO SCH (09:00)
[2021-09-21] MEDS: ENOXAPARIN 40 MG/0.4 ML SYRINGE SUBCUT SCH (09:13)
[2021-09-21] MEDS: PANTOPRAZOLE 40 MG TABLET PO SCH (09:13)
[2021-09-21] MEDS ORDERED: PIPERACILLIN/TAZOBACTAM 3,375 MG in SODIUM CHLORIDE 0.9% 100 ML IV SCH (11:00)
[2021-09-21] MEDS: LORATADINE 10 MG TABLET PO SCH (17:16)
[2021-09-21] MEDS: ONDANSETRON 4 MG/2 ML VIAL IV PRN (17:22)
[2021-09-21] MEDS: AMIODARONE 200 MG TABLET PO SCH (20:58)
[2021-09-21] MEDS: FERROUS SULFATE 325 MG TABLET PO SCH (20:58)
[2021-09-21] MEDS: TICAGRELOR 90 MG TABLET PO SCH (20:58)
[2021-09-21] MEDS: INSULIN GLARGINE 100 UNIT/ML SUBCUT SCH (21:01)
[2021-09-21] MEDS: PIPERACILLIN/TAZOBACTAM 3,375 MG in SODIUM CHLORIDE 0.9% 100 ML IV SCH (21:08)
[2021-09-21] MEDS: METOPROLOL TARTRATE 25 MG TABLET PO SCH (21:08)
[2021-09-22] MEDS: ALBUTEROL/IPRATROPIUM 3 ML NEB RESP TX SCH ×4 (00:45→19:40)
[2021-09-22] MEDS: PIPERACILLIN/TAZOBACTAM 3,375 MG in SODIUM CHLORIDE 0.9% 100 ML IV SCH (04:10)
[2021-09-22 05:13] LABS: Basophils # 0.1 10*3/uL (0.0-0.2); Basophils % 0.6 % (0.0-0.8); Eosinophils # 0.3 10*3/uL (0.0-0.87); Eosinophils % 3.3 % (0.00-10.9); Hematocrit 34.7 VOL% (42.0-52.0); Hemoglobin 10.6 GM/DL (14.0-18.0); Immature Granulocytes % 0.7 %; Immature Granulocytes Absolute 0.07 #; Lymphocytes # 1.3 10*3/uL (1.4-4.0); Lymphocytes % 13.2 % (21.2-54.2); Mean Corpuscular HGB Conc 30.5 GM/DL (32-36); Mean Corpuscular Volume 85.9 FL (87-102); Mean Platelet Volume 9.5 FL (9.6-12.0); Monocytes % 12.4 % (1.7-12.7); Neutrophils % 69.8 % (38.7-73.9); Platelet Count 220 T/CUMM (130-400); Red Blood Count 4.04 MC/CUMM (3.8-5.5)
[2021-09-22 05:42] LABS: Albumin 2.5 G/DL (3.4-5.0); Bilirubin,Total 0.9 MG/DL (0.20-1.00); Calcium 9.5 MG/DL (8.5-10.1); Osmolality,Calculated 291.8 MOS/KG (273-304); Potassium 3.5 MMOL/L (3.5-5.1); Total Protein 6.6 G/DL (6.4-8.2)
[2021-09-22 05:44] LABS: Calcium 9.6 MG/DL (8.5-10.1); Osmolality,Calculated 283.4 MOS/KG (273-304); Potassium 3.4 MMOL/L (3.5-5.1)
[2021-09-22] MEDS: INSULIN REGULAR 100 UNIT/ML SUBCUT SCH ×4 (08:03→20:38)
[2021-09-22] MEDS: AMIODARONE 200 MG TABLET PO SCH ×2 (09:34→20:36)
[2021-09-22] MEDS: CHOLECALCIFEROL 1,000 UNIT TABLET PO SCH (09:34)
[2021-09-22] MEDS: PANTOPRAZOLE 40 MG TABLET PO SCH (09:34)
[2021-09-22] MEDS: FERROUS SULFATE 325 MG TABLET PO SCH ×2 (09:34→20:36)
[2021-09-22] MEDS: LORATADINE 10 MG TABLET PO SCH (09:34)
[2021-09-22] MEDS: TICAGRELOR 90 MG TABLET PO SCH ×2 (09:34→20:36)
[2021-09-22] MEDS: METOPROLOL TARTRATE 25 MG TABLET PO SCH ×2 (09:35→20:36)
[2021-09-22] MEDS: DOCUSATE SODIUM 100 MG CAPSULE PO SCH (09:35)
[2021-09-22] MEDS: ISOSORBIDE MONONITRATE 30 MG TABLET PO SCH (09:35)
[2021-09-22] MEDS: ENOXAPARIN 40 MG/0.4 ML SYRINGE SUBCUT SCH (09:35)
[2021-09-22] MEDS: FUROSEMIDE 40 MG/4 ML VIAL IV SCH ×2 (09:40→16:12)
[2021-09-22] MEDS: INSULIN GLARGINE 100 UNIT/ML SUBCUT SCH ×2 (09:41→20:37)
[2021-09-22] MEDS: AZITHROMYCIN 250 MG TABLET PO SCH (11:03)
[2021-09-22] MEDS: cefTRIAXone 1,000 MG in SODIUM CHLORIDE 0.9% 100 ML IV SCH (11:03)
[2021-09-22] MEDS: ONDANSETRON 4 MG/2 ML VIAL IV PRN (11:11)
[2021-09-22] MEDS ORDERED: POTASSIUM CHLORIDE 20 MEQ TABLET PO ONE (13:00)
[2021-09-23] MEDS: ALBUTEROL/IPRATROPIUM 3 ML NEB RESP TX SCH ×4 (00:25→20:00)
[2021-09-23 06:27] LABS: Basophils # 0.1 10*3/uL (0.0-0.2); Basophils % 0.8 % (0.0-0.8); Eosinophils # 0.6 10*3/uL (0.0-0.87); Eosinophils % 6.2 % (0.00-10.9); Hematocrit 35.4 VOL% (42.0-52.0); Hemoglobin 10.9 GM/DL (14.0-18.0); Immature Granulocytes % 0.5 %; Immature Granulocytes Absolute 0.05 #; Lymphocytes # 1.4 10*3/uL (1.4-4.0); Mean Corpuscular HGB Conc 30.8 GM/DL (32-36); Mean Corpuscular Volume 87.4 FL (87-102); Mean Platelet Volume 9.7 FL (9.6-12.0); Monocytes % 12.8 % (1.7-12.7); Neutrophils % 65.7 % (38.7-73.9); Platelet Count 227 T/CUMM (130-400); Red Blood Count 4.05 MC/CUMM (3.8-5.5); Red Cell Distribution Width 16.3 % (9.3-17.3); White Blood Count 10.1 T/CUMM (4-12)
[2021-09-23 06:47] LABS: Calcium 9.6 MG/DL (8.5-10.1); Osmolality,Calculated 285.1 MOS/KG (273-304); Potassium 3.6 MMOL/L (3.5-5.1)
[2021-09-23] MEDS: LORATADINE 10 MG TABLET PO SCH (10:19)
[2021-09-23] MEDS: AZITHROMYCIN 250 MG TABLET PO SCH (10:19)
[2021-09-23] MEDS: CHOLECALCIFEROL 1,000 UNIT TABLET PO SCH (10:19)
[2021-09-23] MEDS: ISOSORBIDE MONONITRATE 30 MG TABLET PO SCH (10:19)
[2021-09-23] MEDS: INSULIN REGULAR 100 UNIT/ML SUBCUT SCH ×4 (10:19→21:01)
[2021-09-23] MEDS: DOCUSATE SODIUM 100 MG CAPSULE PO SCH (10:19)
[2021-09-23] MEDS: METOPROLOL TARTRATE 25 MG TABLET PO SCH ×2 (10:20→20:58)
[2021-09-23] MEDS: PANTOPRAZOLE 40 MG TABLET PO SCH (10:20)
[2021-09-23] MEDS: FERROUS SULFATE 325 MG TABLET PO SCH ×2 (10:20→20:59)
[2021-09-23] MEDS: AMIODARONE 200 MG TABLET PO SCH ×2 (10:20→20:59)
[2021-09-23] MEDS: TICAGRELOR 90 MG TABLET PO SCH ×2 (10:20→20:59)
[2021-09-23] MEDS: FUROSEMIDE 40 MG/4 ML VIAL IV SCH ×2 (10:25→15:41)
[2021-09-23] MEDS: cefTRIAXone 1,000 MG in SODIUM CHLORIDE 0.9% 100 ML IV SCH (10:26)
[2021-09-23] MEDS: INSULIN GLARGINE 100 UNIT/ML SUBCUT SCH ×2 (10:31→21:00)
[2021-09-23] MEDS: ENOXAPARIN 40 MG/0.4 ML SYRINGE SUBCUT SCH (10:41)
[2021-09-23] MEDS ORDERED: BISACODYL 5 MG TABLET PO ONE (11:00)
[2021-09-24] MEDS: ALBUTEROL/IPRATROPIUM 3 ML NEB RESP TX SCH ×4 (00:10→20:10)
[2021-09-24 05:09] LABS: Basophils # 0.1 10*3/uL (0.0-0.2); Basophils % 0.9 % (0.0-0.8); Eosinophils # 0.6 10*3/uL (0.0-0.87); Eosinophils % 6.5 % (0.00-10.9); Hematocrit 33.8 VOL% (42.0-52.0); Hemoglobin 10.5 GM/DL (14.0-18.0); Immature Granulocytes % 0.9 %; Immature Granulocytes Absolute 0.08 #; Lymphocytes # 1.3 10*3/uL (1.4-4.0); Lymphocytes % 13.9 % (21.2-54.2); Mean Corpuscular HGB Conc 31.1 GM/DL (32-36); Mean Corpuscular Volume 86.9 FL (87-102); Mean Platelet Volume 9.7 FL (9.6-12.0); Monocytes % 14.6 % (1.7-12.7); Neutrophils % 63.2 % (38.7-73.9); Platelet Count 221 T/CUMM (130-400); Red Blood Count 3.89 MC/CUMM (3.8-5.5); Red Cell Distribution Width 16.2 % (9.3-17.3); White Blood Count 9.3 T/CUMM (4-12)
[2021-09-24 05:33] LABS: Calcium 9.7 MG/DL (8.5-10.1); Osmolality,Calculated 283.3 MOS/KG (273-304); Potassium 3.4 MMOL/L (3.5-5.1)
[2021-09-24] MEDS: FUROSEMIDE 40 MG/4 ML VIAL IV SCH ×2 (08:28→15:40)
[2021-09-24] MEDS: AZITHROMYCIN 250 MG TABLET PO SCH (08:29)
[2021-09-24] MEDS: TICAGRELOR 90 MG TABLET PO SCH ×2 (08:29→20:43)
[2021-09-24] MEDS: ENOXAPARIN 40 MG/0.4 ML SYRINGE SUBCUT SCH (08:29)
[2021-09-24] MEDS: CHOLECALCIFEROL 1,000 UNIT TABLET PO SCH (08:29)
[2021-09-24] MEDS: ISOSORBIDE MONONITRATE 30 MG TABLET PO SCH (08:29)
[2021-09-24] MEDS: LORATADINE 10 MG TABLET PO SCH (08:30)
[2021-09-24] MEDS: PANTOPRAZOLE 40 MG TABLET PO SCH (08:30)
[2021-09-24] MEDS: METOPROLOL TARTRATE 25 MG TABLET PO SCH ×2 (08:30→20:43)
[2021-09-24] MEDS: FERROUS SULFATE 325 MG TABLET PO SCH ×2 (08:30→20:43)
[2021-09-24] MEDS: cefTRIAXone 1,000 MG in SODIUM CHLORIDE 0.9% 100 ML IV SCH (10:00)
[2021-09-24] MEDS: DOCUSATE SODIUM 100 MG CAPSULE PO SCH (10:01)
[2021-09-24] MEDS: INSULIN REGULAR 100 UNIT/ML SUBCUT SCH ×4 (10:05→20:45)
[2021-09-24] MEDS: AMIODARONE 200 MG TABLET PO SCH ×2 (10:09→20:43)
[2021-09-24] MEDS: INSULIN GLARGINE 100 UNIT/ML SUBCUT SCH ×2 (10:10→20:45)
[2021-09-24] MEDS ORDERED: DEXTROSE 10% 250 ML BAG IV PRN (10:30)
[2021-09-24] MEDS: POTASSIUM CHLORIDE 20 MEQ TABLET PO PRN ×3 (15:40→20:43)
[2021-09-25] MEDS: ALBUTEROL/IPRATROPIUM 3 ML NEB RESP TX SCH ×4 (01:17→19:47)
[2021-09-25 05:48] LABS: Basophils # 0.1 10*3/uL (0.0-0.2); Eosinophils # 0.6 10*3/uL (0.0-0.87); Eosinophils % 6.7 % (0.00-10.9); Hematocrit 33.8 VOL% (42.0-52.0); Immature Granulocytes % 1.3 %; Immature Granulocytes Absolute 0.12 #; Lymphocytes # 1.3 10*3/uL (1.4-4.0); Lymphocytes % 14.1 % (21.2-54.2); Mean Corpuscular HGB Conc 29.6 GM/DL (32-36); Mean Corpuscular Volume 90.4 FL (87-102); Mean Platelet Volume 10.1 FL (9.6-12.0); Monocytes % 13.1 % (1.7-12.7); Neutrophils % 63.8 % (38.7-73.9); Platelet Count 135 T/CUMM (130-400); Red Blood Count 3.74 MC/CUMM (3.8-5.5); Red Cell Distribution Width 16.4 % (9.3-17.3); White Blood Count 9.1 T/CUMM (4-12)
[2021-09-25 06:08] LABS: Calcium 9.6 MG/DL (8.5-10.1); Osmolality,Calculated 285.3 MOS/KG (273-304); Potassium 4.4 MMOL/L (3.5-5.1)
[2021-09-25] MEDS: INSULIN REGULAR 100 UNIT/ML SUBCUT SCH ×4 (07:25→20:25)
[2021-09-25] MEDS: PANTOPRAZOLE 40 MG TABLET PO SCH (08:55)
[2021-09-25] MEDS: AMIODARONE 200 MG TABLET PO SCH (08:55)
[2021-09-25] MEDS: ISOSORBIDE MONONITRATE 30 MG TABLET PO SCH (08:55)
[2021-09-25] MEDS: FERROUS SULFATE 325 MG TABLET PO SCH ×2 (08:55→20:25)
[2021-09-25] MEDS: AZITHROMYCIN 250 MG TABLET PO SCH (08:55)
[2021-09-25] MEDS: TICAGRELOR 90 MG TABLET PO SCH ×2 (08:55→20:25)
[2021-09-25] MEDS: METOPROLOL TARTRATE 25 MG TABLET PO SCH ×2 (08:55→20:25)
[2021-09-25] MEDS: CHOLECALCIFEROL 1,000 UNIT TABLET PO SCH (08:55)
[2021-09-25] MEDS: LORATADINE 10 MG TABLET PO SCH (08:55)
[2021-09-25] MEDS: FUROSEMIDE 40 MG/4 ML VIAL IV SCH ×2 (09:00→16:41)
[2021-09-25] MEDS: INSULIN GLARGINE 100 UNIT/ML SUBCUT SCH ×2 (09:03→22:00)
[2021-09-25] MEDS: DOCUSATE SODIUM 100 MG CAPSULE PO SCH (09:08)
[2021-09-25] MEDS: ENOXAPARIN 40 MG/0.4 ML SYRINGE SUBCUT SCH (09:09)
[2021-09-25] MEDS: DORNASE ALFA 2.5 MG/2.5 ML VIAL RESP TX SCH ×2 (11:00→19:47)
[2021-09-25] MEDS: cefTRIAXone 1,000 MG in SODIUM CHLORIDE 0.9% 100 ML IV SCH (11:16)
[2021-09-26] MEDS: ALBUTEROL/IPRATROPIUM 3 ML NEB RESP TX SCH ×4 (02:01→20:00)
[2021-09-26 07:21] LABS: Basophils # 0.1 10*3/uL (0.0-0.2); Basophils % 0.6 % (0.0-0.8); Eosinophils # 0.6 10*3/uL (0.0-0.87); Eosinophils % 5.6 % (0.00-10.9); Hematocrit 34.1 VOL% (42.0-52.0); Hemoglobin 10.6 GM/DL (14.0-18.0); Immature Granulocytes % 1.1 %; Immature Granulocytes Absolute 0.12 #; Lymphocytes # 1.7 10*3/uL (1.4-4.0); Lymphocytes % 14.9 % (21.2-54.2); Mean Corpuscular HGB Conc 31.1 GM/DL (32-36); Mean Platelet Volume 10.2 FL (9.6-12.0); Monocytes % 12.2 % (1.7-12.7); Neutrophils % 65.6 % (38.7-73.9); Platelet Count 250 T/CUMM (130-400); Red Blood Count 3.92 MC/CUMM (3.8-5.5); Red Cell Distribution Width 16.5 % (9.3-17.3); White Blood Count 11.1 T/CUMM (4-12)
[2021-09-26] MEDS: DORNASE ALFA 2.5 MG/2.5 ML VIAL RESP TX SCH ×2 (07:22→20:08)
[2021-09-26 07:53] LABS: Calcium 9.3 MG/DL (8.5-10.1); Osmolality,Calculated 287.1 MOS/KG (273-304); Potassium 3.7 MMOL/L (3.5-5.1)
[2021-09-26] MEDS ORDERED: DOCUSATE SODIUM 100 MG CAPSULE PO PRN (09:21)
[2021-09-26] MEDS: INSULIN GLARGINE 100 UNIT/ML SUBCUT SCH ×2 (09:59→20:43)
[2021-09-26] MEDS: cefTRIAXone 1,000 MG in SODIUM CHLORIDE 0.9% 100 ML IV SCH (09:59)
[2021-09-26] MEDS: AMIODARONE 200 MG TABLET PO SCH (10:00)
[2021-09-26] MEDS: FERROUS SULFATE 325 MG TABLET PO SCH ×2 (10:00→20:41)
[2021-09-26] MEDS: AZITHROMYCIN 250 MG TABLET PO SCH (10:00)
[2021-09-26] MEDS: CHOLECALCIFEROL 1,000 UNIT TABLET PO SCH (10:00)
[2021-09-26] MEDS: ISOSORBIDE MONONITRATE 30 MG TABLET PO SCH (10:00)
[2021-09-26] MEDS: METOPROLOL TARTRATE 25 MG TABLET PO SCH ×2 (10:00→20:43)
[2021-09-26] MEDS: TICAGRELOR 90 MG TABLET PO SCH ×2 (10:00→20:40)
[2021-09-26] MEDS: FUROSEMIDE 40 MG/4 ML VIAL IV SCH ×2 (10:00→16:58)
[2021-09-26] MEDS: LORATADINE 10 MG TABLET PO SCH (10:00)
[2021-09-26] MEDS: INSULIN REGULAR 100 UNIT/ML SUBCUT SCH ×4 (10:04→20:41)
[2021-09-26] MEDS: PANTOPRAZOLE 40 MG TABLET PO SCH (10:05)
[2021-09-26] MEDS: DOCUSATE SODIUM 100 MG CAPSULE PO SCH (10:55)
[2021-09-26] MEDS: ENOXAPARIN 40 MG/0.4 ML SYRINGE SUBCUT SCH (10:55)
[2021-09-27] MEDS: ALBUTEROL/IPRATROPIUM 3 ML NEB RESP TX SCH ×4 (00:37→20:00)
[2021-09-27 05:42] LABS: Basophils # 0.1 10*3/uL (0.0-0.2); Basophils % 0.8 % (0.0-0.8); Eosinophils # 0.6 10*3/uL (0.0-0.87); Eosinophils % 5.5 % (0.00-10.9); Hematocrit 35.7 VOL% (42.0-52.0); Hemoglobin 10.9 GM/DL (14.0-18.0); Immature Granulocytes % 1.5 %; Immature Granulocytes Absolute 0.18 #; Lymphocytes # 1.5 10*3/uL (1.4-4.0); Lymphocytes % 12.5 % (21.2-54.2); Mean Corpuscular HGB Conc 30.5 GM/DL (32-36); Mean Corpuscular Volume 86.7 FL (87-102); Mean Platelet Volume 9.7 FL (9.6-12.0); Monocytes % 11.7 % (1.7-12.7); Platelet Count 266 T/CUMM (130-400); Red Blood Count 4.12 MC/CUMM (3.8-5.5); Red Cell Distribution Width 16.5 % (9.3-17.3); White Blood Count 11.7 T/CUMM (4-12)
[2021-09-27 05:53] LABS: Calcium 9.4 MG/DL (8.5-10.1); Osmolality,Calculated 286.1 MOS/KG (273-304); Potassium 3.6 MMOL/L (3.5-5.1)
[2021-09-27] MEDS: DORNASE ALFA 2.5 MG/2.5 ML VIAL RESP TX SCH ×2 (07:17→20:10)
[2021-09-27] MEDS: cefTRIAXone 1,000 MG in SODIUM CHLORIDE 0.9% 100 ML IV SCH (10:01)
[2021-09-27] MEDS: INSULIN GLARGINE 100 UNIT/ML SUBCUT SCH ×2 (10:05→23:17)
[2021-09-27] MEDS: AMIODARONE 200 MG TABLET PO SCH (10:06)
[2021-09-27] MEDS: ISOSORBIDE MONONITRATE 30 MG TABLET PO SCH (10:06)
[2021-09-27] MEDS: FERROUS SULFATE 325 MG TABLET PO SCH ×2 (10:06→23:16)
[2021-09-27] MEDS: PANTOPRAZOLE 40 MG TABLET PO SCH (10:06)
[2021-09-27] MEDS: CHOLECALCIFEROL 1,000 UNIT TABLET PO SCH (10:06)
[2021-09-27] MEDS: TICAGRELOR 90 MG TABLET PO SCH ×2 (10:06→23:16)
[2021-09-27] MEDS: LORATADINE 10 MG TABLET PO SCH (10:06)
[2021-09-27] MEDS: METOPROLOL TARTRATE 25 MG TABLET PO SCH ×2 (10:06→23:16)
[2021-09-27] MEDS: INSULIN REGULAR 100 UNIT/ML SUBCUT SCH ×4 (11:28→23:17)
[2021-09-27] MEDS: ENOXAPARIN 40 MG/0.4 ML SYRINGE SUBCUT SCH (11:29)
[2021-09-27] MEDS: FUROSEMIDE 40 MG/4 ML VIAL IV SCH ×2 (11:38→18:30)
[2021-09-28] MEDS: ALBUTEROL/IPRATROPIUM 3 ML NEB RESP TX SCH ×4 (00:22→20:05)
[2021-09-28 05:56] LABS: Basophils # 0.1 10*3/uL (0.0-0.2); Basophils % 0.7 % (0.0-0.8); Eosinophils # 0.6 10*3/uL (0.0-0.87); Hematocrit 35.3 VOL% (42.0-52.0); Immature Granulocytes % 1.3 %; Immature Granulocytes Absolute 0.13 #; Lymphocytes # 1.2 10*3/uL (1.4-4.0); Lymphocytes % 11.8 % (21.2-54.2); Mean Corpuscular HGB Conc 31.2 GM/DL (32-36); Mean Corpuscular Volume 86.7 FL (87-102); Mean Platelet Volume 9.5 FL (9.6-12.0); Monocytes % 12.9 % (1.7-12.7); Neutrophils % 67.3 % (38.7-73.9); Platelet Count 252 T/CUMM (130-400); Red Blood Count 4.07 MC/CUMM (3.8-5.5); Red Cell Distribution Width 16.5 % (9.3-17.3); White Blood Count 9.8 T/CUMM (4-12)
[2021-09-28 06:28] LABS: Calcium 9.4 MG/DL (8.5-10.1); Osmolality,Calculated 287.1 MOS/KG (273-304); Potassium 3.8 MMOL/L (3.5-5.1)
[2021-09-28] MEDS: DORNASE ALFA 2.5 MG/2.5 ML VIAL RESP TX SCH ×2 (07:37→20:15)
[2021-09-28] MEDS: INSULIN REGULAR 100 UNIT/ML SUBCUT SCH ×4 (08:37→21:37)
[2021-09-28] MEDS: LORATADINE 10 MG TABLET PO SCH (09:19)
[2021-09-28] MEDS: CHOLECALCIFEROL 1,000 UNIT TABLET PO SCH (09:19)
[2021-09-28] MEDS: PANTOPRAZOLE 40 MG TABLET PO SCH (09:19)
[2021-09-28] MEDS: TICAGRELOR 90 MG TABLET PO SCH ×2 (09:19→21:35)
[2021-09-28] MEDS: FERROUS SULFATE 325 MG TABLET PO SCH ×2 (09:19→21:35)
[2021-09-28] MEDS: METOPROLOL TARTRATE 25 MG TABLET PO SCH ×2 (09:19→21:36)
[2021-09-28] MEDS: ISOSORBIDE MONONITRATE 30 MG TABLET PO SCH (09:20)
[2021-09-28] MEDS: AMIODARONE 200 MG TABLET PO SCH (09:20)
[2021-09-28] MEDS: INSULIN GLARGINE 100 UNIT/ML SUBCUT SCH ×2 (09:21→21:37)
[2021-09-28] MEDS: ENOXAPARIN 40 MG/0.4 ML SYRINGE SUBCUT SCH (09:22)
[2021-09-28] MEDS: cefTRIAXone 1,000 MG in SODIUM CHLORIDE 0.9% 100 ML IV SCH (09:23)
[2021-09-28] MEDS: FUROSEMIDE 40 MG/4 ML VIAL IV SCH ×2 (09:38→16:51)
[2021-09-29 05:18] LABS: Basophils # 0.1 10*3/uL (0.0-0.2); Basophils % 0.6 % (0.0-0.8); Eosinophils # 0.6 10*3/uL (0.0-0.87); Eosinophils % 5.2 % (0.00-10.9); Hematocrit 36.8 VOL% (42.0-52.0); Hemoglobin 11.3 GM/DL (14.0-18.0); Immature Granulocytes % 1.3 %; Immature Granulocytes Absolute 0.14 #; Lymphocytes # 1.4 10*3/uL (1.4-4.0); Lymphocytes % 12.5 % (21.2-54.2); Mean Corpuscular HGB Conc 30.7 GM/DL (32-36); Mean Corpuscular Volume 87.4 FL (87-102); Mean Platelet Volume 9.4 FL (9.6-12.0); Monocytes % 13.6 % (1.7-12.7); Neutrophils % 66.8 % (38.7-73.9); Platelet Count 277 T/CUMM (130-400); Red Blood Count 4.21 MC/CUMM (3.8-5.5); Red Cell Distribution Width 16.4 % (9.3-17.3); White Blood Count 11.1 T/CUMM (4-12)
[2021-09-29 05:47] LABS: Calcium 10.1 MG/DL (8.5-10.1); Osmolality,Calculated 285.4 MOS/KG (273-304); Potassium 4.2 MMOL/L (3.5-5.1)
[2021-09-29] MEDS: ALBUTEROL/IPRATROPIUM 3 ML NEB RESP TX SCH ×2 (07:11)
[2021-09-29] MEDS: DORNASE ALFA 2.5 MG/2.5 ML VIAL RESP TX SCH (07:20)
[2021-09-29] MEDS: PANTOPRAZOLE 40 MG TABLET PO SCH (09:53)
[2021-09-29] MEDS: CHOLECALCIFEROL 1,000 UNIT TABLET PO SCH (09:53)
[2021-09-29] MEDS: METOPROLOL TARTRATE 25 MG TABLET PO SCH (09:53)
[2021-09-29] MEDS: ISOSORBIDE MONONITRATE 30 MG TABLET PO SCH (09:53)
[2021-09-29] MEDS: FUROSEMIDE 40 MG/4 ML VIAL IV SCH (09:53)
[2021-09-29] MEDS: LORATADINE 10 MG TABLET PO SCH (09:54)
[2021-09-29] MEDS: INSULIN REGULAR 100 UNIT/ML SUBCUT SCH (09:54)
[2021-09-29] MEDS: TICAGRELOR 90 MG TABLET PO SCH (09:54)
[2021-09-29] MEDS: INSULIN GLARGINE 100 UNIT/ML SUBCUT SCH (09:54)
[2021-09-29] MEDS: FERROUS SULFATE 325 MG TABLET PO SCH (09:54)
[2021-09-29] MEDS: AMIODARONE 200 MG TABLET PO SCH (09:54)
[2021-09-29] MEDS: ENOXAPARIN 40 MG/0.4 ML SYRINGE SUBCUT SCH (10:27)
[2021-09-29 12:12] VITALS: BP 130/67
[2021-09-29] MEDS ORDERED: FUROSEMIDE 40 MG TABLET PO SCH (16:00)
[2021-09-30] MEDS ORDERED: FUROSEMIDE 80 MG TABLET PO SCH (09:00)
== END 2021-09-29 12:30 | disposition home health service (06) | DRG 871 ==
LOC: SUATTDRO → N.ED 02:17 → SUATTDRO 04:53 → N.EDINP 04:53 → N.5E 14:28
PROVIDERS: ADMIT Internal Medicine; ATTEND Internal Medicine

== ENCOUNTER 2021-12-13 23:37 | Inpatient (IN) ==
[2021-12-13] MEDS ORDERED: ASPIRIN 325 MG TABLET PO STA (23:53)
[2021-12-14] MEDS ORDERED: NITROGLYCERIN 2% OINT 1 INCH/GM PACK TOP STA (00:24)
[2021-12-14] MEDS ORDERED: PANTOPRAZOLE 40 MG VIAL IV STA (00:24)
[2021-12-14] MEDS ORDERED: ALUM/MAG/SIMETH/LIDO VISC 1:1 30 ML BOTTLE PO STA (00:24)
[2021-12-14 00:39] LABS: Basophils # 0.1 10*3/uL (0.0-0.2); Basophils % 0.4 % (0.0-0.8); Eosinophils % 0.3 % (0.00-10.9); Hematocrit 39.5 VOL% (42.0-52.0); Hemoglobin 13.2 GM/DL (14.0-18.0); Immature Granulocytes % 0.9 %; Lymphocytes # 1.2 10*3/uL (1.4-4.0); Lymphocytes % 10.4 % (21.2-54.2); Mean Corpuscular HGB Conc 33.4 GM/DL (32-36); Mean Corpuscular Volume 88.8 FL (87-102); Monocytes % 9.1 % (1.7-12.7); Neutrophils % 78.9 % (38.7-73.9); Platelet Count 219 T/CUMM (130-400); Red Blood Count 4.45 MC/CUMM (3.8-5.5); Red Cell Distribution Width 15.9 % (9.3-17.3); White Blood Count 11.6 T/CUMM (4-12)
[2021-12-14] MEDS ORDERED: ONDANSETRON 4 MG/2 ML VIAL IV STA (00:47)
[2021-12-14] MEDS ORDERED: HYDROmorphone 1 MG/1 ML SYRINGE IV STA (00:47)
[2021-12-14 00:49] LABS: PT Patient Result 11.4 SECS (10.5-12.0)
[2021-12-14 01:01] LABS: Albumin 3.5 G/DL (3.4-5.0); Bilirubin,Total 0.5 MG/DL (0.20-1.00); Calcium 9.5 MG/DL (8.5-10.1); Osmolality,Calculated 295.5 MOS/KG (273-304); Potassium 4.1 MMOL/L (3.5-5.1); Total Protein 7.7 G/DL (6.4-8.2)
[2021-12-14 01:05] LABS: Calcium 9.5 MG/DL (8.5-10.1)
[2021-12-14 01:06] LABS: Osmolality,Calculated 295.5 MOS/KG (273-304); Potassium 4.1 MMOL/L (3.5-5.1)
[2021-12-14] MEDS ORDERED: GLUCAGON 1 MG VIAL IM PRN (01:19)
[2021-12-14] MEDS ORDERED: ACETAMINOPHEN 325 MG TABLET PO PRN (01:19)
[2021-12-14] MEDS ORDERED: ONDANSETRON 4 MG/2 ML VIAL IV PRN (01:19)
[2021-12-14] MEDS ORDERED: NITROGLYCERIN 2% OINT 1 INCH/GM PACK TOP SCH (01:30)
[2021-12-14] MEDS ORDERED: DEXTROSE 10% 250 ML BAG IV PRN (01:33)
[2021-12-14 06:48] LABS: Albumin 2.8 G/DL (3.4-5.0); Bilirubin,Total 0.4 MG/DL (0.20-1.00); Calcium 9.1 MG/DL (8.5-10.1); Osmolality,Calculated 298.8 MOS/KG (273-304); Potassium 3.8 MMOL/L (3.5-5.1); Risk Ratio 7.87; Total Protein 6.5 G/DL (6.4-8.2); VLDL Cholesterol 79.6 MG/DL
[2021-12-14] MEDS ORDERED: ALBUTEROL/IPRATROPIUM 3 ML NEB RESP TX PRN (07:14)
[2021-12-14] MEDS: INSULIN REGULAR 100 UNIT/ML SUBCUT SCH ×4 (08:14→22:07)
[2021-12-14] MEDS: METOPROLOL TARTRATE 25 MG TABLET PO SCH ×2 (08:51→23:22)
[2021-12-14] MEDS ORDERED: FUROSEMIDE 40 MG TABLET PO SCH (09:00)
[2021-12-14] MEDS ORDERED: ASPIRIN EC 325 MG TABLET PO SCH (09:00)
[2021-12-14] MEDS ORDERED: ISOSORBIDE MONONITRATE 30 MG TABLET PO SCH (09:00)
[2021-12-14] MEDS: TICAGRELOR 90 MG TABLET PO SCH ×2 (09:11→22:06)
[2021-12-14] MEDS: DOCUSATE SODIUM 100 MG CAPSULE PO SCH ×2 (09:11→22:07)
[2021-12-14] MEDS: FERROUS SULFATE 325 MG TABLET PO SCH ×2 (09:11→22:06)
[2021-12-14] MEDS: PANTOPRAZOLE 40 MG TABLET PO SCH (09:12)
[2021-12-14] MEDS ORDERED: AMIODARONE 200 MG TABLET PO SCH (21:00)
[2021-12-14] MEDS: LORATADINE 10 MG TABLET PO SCH (23:22)
[2021-12-15 04:59] LABS: Basophils % 0.4 % (0.0-0.8); Eosinophils # 0.2 10*3/uL (0.0-0.87); Eosinophils % 4.1 % (0.00-10.9); Hematocrit 38.5 VOL% (42.0-52.0); Hemoglobin 12.2 GM/DL (14.0-18.0); Immature Granulocytes % 0.5 %; Immature Granulocytes Absolute 0.03 #; Lymphocytes # 1.4 10*3/uL (1.4-4.0); Mean Corpuscular HGB Conc 31.7 GM/DL (32-36); Mean Corpuscular Volume 91.7 FL (87-102); Mean Platelet Volume 9.9 FL (9.6-12.0); Monocytes % 11.8 % (1.7-12.7); Neutrophils % 58.2 % (38.7-73.9); Platelet Count 184 T/CUMM (130-400); Red Cell Distribution Width 15.9 % (9.3-17.3); White Blood Count 5.7 T/CUMM (4-12)
[2021-12-15 05:24] LABS: Calcium 9.9 MG/DL (8.5-10.1); Osmolality,Calculated 292.8 MOS/KG (273-304); Potassium 4.2 MMOL/L (3.5-5.1)
[2021-12-15] MEDS ORDERED: ISOSORBIDE MONONITRATE 60 MG TABLET PO SCH (09:00)
[2021-12-15] MEDS: FERROUS SULFATE 325 MG TABLET PO SCH (09:21)
[2021-12-15] MEDS: METOPROLOL TARTRATE 25 MG TABLET PO SCH (09:21)
[2021-12-15] MEDS: DOCUSATE SODIUM 100 MG CAPSULE PO SCH (09:21)
[2021-12-15] MEDS: PANTOPRAZOLE 40 MG TABLET PO SCH (09:21)
[2021-12-15] MEDS: TICAGRELOR 90 MG TABLET PO SCH (09:22)
[2021-12-15] MEDS: LORATADINE 10 MG TABLET PO SCH (09:22)
[2021-12-15] MEDS: INSULIN REGULAR 100 UNIT/ML SUBCUT SCH ×2 (09:23→12:17)
[2021-12-15] MEDS ORDERED: RANOLAZINE 500 MG TABLET PO SCH (11:00)
[2021-12-15 11:59] VITALS: BP 144/64
== END 2021-12-15 15:27 | disposition home or self-care (01) | DRG 281 ==
LOC: N.ED 23:37 → N.EDINP 23:37 → SUATTDRO 12-14 01:19 → N.TELEN 12-14 20:09
PROVIDERS: ADMIT Internal Medicine; ATTEND Internal Medicine